=== PATIENT | female | born 1990 | race Caucasian/White ===

== ENCOUNTER 2018-12-23 07:08 | Inpatient (IN) | payer BC ==
[2018-12-23] MEDS ORDERED: Misoprostol 25 MCG (1/4 of 100 MCG) Tab ONE (07:17)
[2018-12-23] MEDS ORDERED: Ondansetron 4 MG/2 ML SDV IVPUSH PRN ×2 (07:18→09:50)
[2018-12-23] MEDS ORDERED: Sodium Chloride 0.9% 10 ML Syringe FLUSH PRN (07:18)
[2018-12-23] MEDS ORDERED: Nalbuphine 10 MG/1 ML Vial IVPUSH PRN (07:18)
--- NOTE | 2018-12-23 07:21 | PCM.LDHP ---
L&D History of Present Illness - General Date of Service: 12/23/18 Admit Problem/Dx: Patient Status Order with Admit Dx/Problem 12/23/18 07:18 Patient Status [ADT] Routine Admission Diagnosis/Problem Admission Diagnosis/Problem High risk Source of Information: Patient History Limitations: Reports: No Limitations - History of Present Illness Introduction:: Patient is a 28-year-old at 37-0/7 weeks gestation who presents for induction of labor for concerns of growth restriction and current . She is feeling well today. Good movement. 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 Para: 0 LMP (Approximate): - Past Surgical History HEENT Surgical History: Reports: Adenoidectomy, Tonsillectomy Social & Family History - Tobacco Use Smoking Status *Q: Never Smoker - Alcohol Use Alcohol Use History: No - Recreational Drug Use Recreational Drug Use: No H&P Review of Systems - Review of Systems: Review Of Systems: See Below General: Reports: No Symptoms Pulmonary: Reports: No Symptoms Cardiovascular: Reports: No Symptoms Gastrointestinal: Reports: No Symptoms Genitourinary: Reports: No Symptoms Musculoskeletal: Reports: No Symptoms Neurological: Reports: No Symptoms L&D Exam - Exam Exam: See Below - OB Specific Contraction Intensity: Irritability Movement: Active Heart Tones: Present Heart Tones per Min: 125 Heart Rate (FHR) Variability: Moderate (6-25 bmp) Presentation: Vertex - Rizo Score Rizo Score Cervix Position: Posterior Rizo Score Consistency: Medium Rizo Score Effacement: 0-30% Rizo Score Dilation: Closed Rizo Score Infant's Station: -2 Rizo Score Total: 2 - Exam General: Alert, Oriented, Cooperative Lungs: Clear to Auscultation, Normal Respiratory Effort Cardiovascular: Regular Rate, Regular Rhythm GI/Abdominal Exam: Soft, Non-Tender Genitourinary: Normal external exam Extremities: Normal Inspection Skin: Warm, Dry, Intact - Patient Data Result Diagrams: 12/23/18 07:32 - Problem List (1) 37 weeks gestation of SNOMED Code(s): 02930908 ICD Code: Z3A.37 - 37 WEEKS GESTATION OF Status: Acute Current Visit: Yes (2) IUGR (intrauterine growth restriction) SNOMED Code(s): 06880411 ICD Code: [id number] - Status: Acute Current Visit: Yes (3) Rh negative state in antepartum period SNOMED Code(s): 120910170 ICD Code: O26.899 - OTH RELATED CONDITIONS, UNSPECIFIED TRIMESTER; Z67.91 - UNSPECIFIED BLOOD TYPE, RH NEGATIVE Status: Acute Current Visit: Yes (4) GBS (group B Streptococcus carrier), +RV culture, currently SNOMED Code(s): 2953407052709, 809103308, 5089415446887 ICD Code: O99.820 - STREPTOCOCCUS B CARRIER STATE COMPLICATING Status: Acute Current Visit: Yes Problem List Initiated/Reviewed/Updated: Yes Orders Last 24hrs: Active Orders 24 hr Category Date Time Status Patient Status [ADT] Routine ADT 12/23/18 07:18 Ordered Activity as Tolerated [RC] PFP Care 12/23/18 07:18 Ordered Communication Order [RC] ASDIRECTED Care 12/23/18 07:18 Ordered Communication Order [RC] ASDIRECTED Care 12/23/18 07:18 Ordered Communication Order [RC] ASDIRECTED Care 12/23/18 07:18 Ordered Monitoring [RC] INTERMITTENT Care 12/23/18 07:18 Ordered Non Stress Test [RC] PER UNIT ROUTINE Care 12/23/18 07:18 Ordered Notify Provider [RC] ASDIRECTED Care 12/23/18 07:18 Ordered Notify Provider [RC] PRN Care 12/23/18 07:18 Ordered Peripheral IV Care [RC] . DIRECTED Care 12/23/18 07:19 Ordered Vaginal Exam [RC] ASDIRECTED Care 12/23/18 07:18 Ordered Vital Signs [RC] ASDIRECTED Care 12/23/18 07:18 Ordered Regular Diet [DIET] Diet 12/23/18 Breakfast Ordered CBC W/O DIFF,HEMOGRAM [HEME] Routine Lab 12/23/18 07:18 Ordered RAPID PLASMA REAGIN,RPR [CHEM] Routine Lab 12/23/18 07:18 Ordered TYPE AND SCREEN [BBK] Routine Lab 12/23/18 07:18 Ordered Lactated Ringers [Ringers, Lactated] 1,000 ml Med 12/23/18 07:30 Ordered IV ASDIRECTED Nalbuphine [Nubain] Med 12/23/18 07:18 Ordered 10 mg IVPUSH Q2H PRN Ondansetron [Zofran] Med 12/23/18 07:18 Ordered 4 mg IVPUSH Q4H PRN Oxytocin/Lactated Ringers [Pitocin in LR 10 Units/1,000 Med 12/23/18 07:30 Ordered ML] 10 unit in 1,000 ml IV .CONTINUOUS Sodium Chloride 0.9% [Saline Flush] Med 12/23/18 07:18 Ordered 10 ml FLUSH ASDIRECTED PRN miSOPROStol [Cytotec] Med 12/23/18 07:18 Ordered 25 mcg VAG Q4H PRN Electronic Heart Tones Internal [WOMSER] Per Unit Oth 12/23/18 07:18 Ordered Routine Peripheral IV Insertion Adult [OM.PC] Routine Oth 12/23/18 07:18 Ordered Resuscitation Status Routine Resus Stat 12/23/18 07:18 Ordered Assessment/Plan Comment:: Patient is a 28-year-old at 37-0/7 weeks gestation who presents for induction of labor for growth restriction * Labs ordered * Will start induction with Cytotec and eventually [place] bulb and then on to Pitocin and AROM as needed * GBS positive, will start antibiotic skin in more active phase of labor * Pain management per patient preference * Anticipate * Assess baby blood type following delivery to see if additional Rhogam required
[2018-12-23] MEDS ORDERED: fentaNYL 100 MCG/2 ML SDV EPIDUR PRN (09:50)
[2018-12-23] MEDS ORDERED: ePHEDrine 50 MG/ML SDV IVPUSH PRN (09:50)
--- NOTE | 2018-12-23 09:52 | PCM.PREANE ---
Preanesthetic Assessment - Anesthesia/Transfusion/Family Hx Anesthesia History: Prior Anesthesia Without Reaction Family History of Anesthesia Reaction: No Transfusion History: No Prior Transfusion(s) Intubation History: Unknown - Review of Systems General: No Symptoms Pulmonary: No Symptoms Cardiovascular: No Symptoms Gastrointestinal: No Symptoms (GERD-), Constipation () Neurological: No Symptoms Other: Reports: None, Sinus Problem (seasonal allergies), Depression, Anxiety - Physical Assessment NPO Status Date: 12/23/18 NPO Status Time: 06:30 Vital Signs: Last Vital Signs Temp 36.6 C 12/23/18 07:18 Pulse 57 L 12/23/18 07:18 Resp 16 12/23/18 07:18 BP 112/67 12/23/18 07:18 Pulse Ox 97 12/23/18 07:18 Height: 1.65 m Weight: 67.585 kg ASA Class: 2 Mental Status: Alert & Oriented x3 Airway Class: Mallampati = 2 Dentition: Reports: Normal Dentition, Caries Thyro-Mental Finger Breadths: 3 Mouth Opening Finger Breadths: 3 ROM/Head Extension: Full Lungs: Clear to Auscultation, Normal Respiratory Effort Cardiovascular: Regular Rate, Regular Rhythm, No Murmurs - Lab Values: Laboratory Last Values WBC 7.36 K/mm3 (3.98-10.04) 12/23/18 07:32 RBC 4.29 M/mm3 (3.98-5.22) 12/23/18 07:32 Hgb 13.0 gm/L (11.2-15.7) 12/23/18 07:32 Hct 37.7 % (34.1-44.9) 12/23/18 07:32 MCV 87.9 fl (79.4-94.8) 12/23/18 07:32 MCH 30.3 pg (25.6-32.2) 12/23/18 07:32 MCHC 34.5 g/dl (32.2-35.5) 12/23/18 07:32 RDW Std Deviation 39.2 fL (36.4-46.3) 12/23/18 07:32 Plt Count 176 K/mm3 (182-369) L 12/23/18 07:32 MPV 10.5 fl (9.4-12.3) 12/23/18 07:32 Blood Type O NEGATIVE 12/23/18 07:32 Gel Antibody Screen Positive 12/23/18 07:32 All labs reviewed and noted and within acceptable ranges to proceed with epidural if desired. - Allergies Allergies/Adverse Reactions: Allergies Allergy/AdvReac Type Severity Reaction Status Date / Time shellfish derived Allergy Hives Verified 12/23/18 08:47 - Anesthesia Plan Pre-Op Medication Ordered: None - Acknowledgements Anesthesia Type Planned: Epidural Pt an Appropriate Candidate for the Planned Anesthesia: Yes Alternatives and Risks of Anesthesia Discussed w Pt/Guardian: Yes Pt/Guardian Understands and Agrees with Anesthesia Plan: Yes PreAnesthesia Questionnaire - Past Health History Medical/Surgical History: Denies Medical/Surgical History HEENT History: Reports: Other (See Below) Other HEENT History: Seasonal allergies 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: Psychiatric History: Reports: Anxiety - SUBSTANCE USE Smoking Status *Q: Never Smoker Second Hand Smoke Exposure: No Recreational Drug Use History: No - HOME MEDS Home Medications: Home Meds Famotidine [Pepcid] 20 mg PO BEDTIME 12/23/18 [History] PNV95/Ferrous Fumarate/FA [ Tablet] 1 tab PO DAILY 12/23/18 [History] Sertraline HCl 50 mg PO DAILY 12/23/18 [History] - CURRENT (IN HOUSE) MEDS Current Meds: Current Medications Lactated Ringer's (Ringers, Lactated) 1,000 mls @ 40 mls/hr IV ASDIRECTED RAQUEL Oxytocin/Lactated Ringer's (Pitocin In Lr 10 Units/1,000 Ml) 10 unit in 1,000 mls @ 500 mls/hr IV .CONTINUOUS RAQUEL Misoprostol (Cytotec) 25 mcg VAG Q4H PRN PRN Reason: cervical ripening Nalbuphine HCl (Nubain) 10 mg IVPUSH Q2H PRN PRN Reason: Pain Ondansetron HCl (Zofran) 4 mg IVPUSH Q4H PRN PRN Reason: Nausea/Vomiting Sodium Chloride (Saline Flush) 10 ml FLUSH ASDIRECTED PRN PRN Reason: Keep Vein Open Discontinued Medications Misoprostol (Cytotec) Confirm Administered Dose 25 mcg .ROUTE .STK-MED ONE Stop: 12/23/18 07:18 Last Admin: 12/23/18 07:15 Dose: 25 mcg
[2018-12-23] MEDS ORDERED: Bupivacaine/fentaNYL/NS 100 ML Bag EPIDUR SCH (10:00)
[2018-12-23] MEDS: Misoprostol 25 MCG (1/4 of 100 MCG) Tab VAG PRN ×2 (11:44→15:59)
--- NOTE | 2018-12-23 17:04 | PCM.PNLD ---
Labor Progress Note - VS & Meds Vital Signs: Last Vital Signs Temp 36.6 C 12/23/18 07:18 Pulse 57 L 12/23/18 07:18 Resp 16 12/23/18 07:18 BP 112/67 12/23/18 07:18 Pulse Ox 97 12/23/18 07:18 Active Medications: Current Medications Ephedrine Sulfate (Ephedrine Sulfate) 5 mg IVPUSH ASDIRECTED PRN PRN Reason: Hypotension Fentanyl (Sublimaze) 100 mcg EPIDUR Q3H PRN PRN Reason: Pain Fentanyl/Bupivacaine HCl (Fentanyl/Bupivacaine/Ns 2 Mcg-0.125% 100 Ml) 100 ml EPIDUR ASDIRECTED RAQUEL Lactated Ringer's (Ringers, Lactated) 1,000 mls @ 40 mls/hr IV ASDIRECTED RAQUEL Oxytocin/Lactated Ringer's (Pitocin In Lr 10 Units/1,000 Ml) 10 unit in 1,000 mls @ 500 mls/hr IV .CONTINUOUS RAQUEL Penicillin G Potassium 5 (millunits/ Sodium Chloride) 100 mls @ 55 mls/hr IV ONETIME RAQUEL Penicillin G Potassium 2.5 (millunits/ Sodium Chloride) 100 mls @ 55 mls/hr IV Q4H RAQUEL Misoprostol (Cytotec) 25 mcg VAG Q4H PRN PRN Reason: cervical ripening Last Admin: 12/23/18 15:59 Dose: 25 mcg Nalbuphine HCl (Nubain) 10 mg IVPUSH Q2H PRN PRN Reason: Pain Ondansetron HCl (Zofran) 4 mg IVPUSH Q4H PRN PRN Reason: Nausea/Vomiting Ondansetron HCl (Zofran) 4 mg IVPUSH ONETIME PRN PRN Reason: Nausea/Vomiting Sertraline HCl (Zoloft) 50 mg PO DAILY RAQUEL Sodium Chloride (Saline Flush) 10 ml FLUSH ASDIRECTED PRN PRN Reason: Keep Vein Open Discontinued Medications Misoprostol (Cytotec) Confirm Administered Dose 25 mcg .ROUTE .STK-MED ONE Stop: 12/23/18 07:18 Last Admin: 12/23/18 07:15 Dose: 25 mcg - Uterine Contractions Uterine Monitoring Mode: External [place] Contraction Intensity: Irritability - Monitoring Monitor Mode: External Ultrasound Heart Rate (FHR) Baseline: 120 Heart Rate (FHR) Variability: Moderate (6-25 bmp) Accelerations: Present, 15x15 Decelerations: None Strip Review: Category I - Vaginal Exam Dilation (cm): 0.5 - Labor Progress (Free Text) Labor Progress: Doing well. Had 3rd dose of Cytotec placed on 1530. [place] bulb placed to continue IOL. Will reassess for 4th cytotec vs pitocin at 1930. Will start PCN when more active
--- NOTE | 2018-12-23 20:12 | PCM.PNLD ---
Labor Progress Note - VS & Meds Vital Signs: Last Vital Signs Temp 36.6 C 12/23/18 07:18 Pulse 57 L 12/23/18 07:18 Resp 16 12/23/18 07:18 BP 112/67 12/23/18 07:18 Pulse Ox 97 12/23/18 07:18 Active Medications: Current Medications Ephedrine Sulfate (Ephedrine Sulfate) 5 mg IVPUSH ASDIRECTED PRN PRN Reason: Hypotension Fentanyl (Sublimaze) 100 mcg EPIDUR Q3H PRN PRN Reason: Pain Fentanyl/Bupivacaine HCl (Fentanyl/Bupivacaine/Ns 2 Mcg-0.125% 100 Ml) 100 ml EPIDUR ASDIRECTED RAQUEL Lactated Ringer's (Ringers, Lactated) 1,000 mls @ 40 mls/hr IV ASDIRECTED RAQUEL Oxytocin/Lactated Ringer's (Pitocin In Lr 10 Units/1,000 Ml) 10 unit in 1,000 mls @ 500 mls/hr IV .CONTINUOUS RAQUEL Penicillin G Potassium 5 (millunits/ Sodium Chloride) 100 mls @ 55 mls/hr IV ONETIME RAQUEL Penicillin G Potassium 2.5 (millunits/ Sodium Chloride) 100 mls @ 55 mls/hr IV Q4H RAQUEL Misoprostol (Cytotec) 25 mcg VAG Q4H PRN PRN Reason: cervical ripening Last Admin: 12/23/18 15:59 Dose: 25 mcg Nalbuphine HCl (Nubain) 10 mg IVPUSH Q2H PRN PRN Reason: Pain Ondansetron HCl (Zofran) 4 mg IVPUSH Q4H PRN PRN Reason: Nausea/Vomiting Ondansetron HCl (Zofran) 4 mg IVPUSH ONETIME PRN PRN Reason: Nausea/Vomiting Sertraline HCl (Zoloft) 50 mg PO DAILY RAQUEL Sodium Chloride (Saline Flush) 10 ml FLUSH ASDIRECTED PRN PRN Reason: Keep Vein Open Discontinued Medications Misoprostol (Cytotec) Confirm Administered Dose 25 mcg .ROUTE .STK-MED ONE Stop: 12/23/18 07:18 Last Admin: 12/23/18 07:15 Dose: 25 mcg - Uterine Contractions Uterine Monitoring Mode: External [employer] Contraction Intensity: Moderate - Monitoring Monitor Mode: External Ultrasound Heart Rate (FHR) Baseline: 150 Heart Rate (FHR) Variability: Moderate (6-25 bmp) Accelerations: Present, 15x15 Decelerations: None Strip Review: Category I - Vaginal Exam Dilation (cm): 2-3 Effacement (Percent): 50 Station: -2 Cervical Position: Midposition - Labor Progress (Free Text) Labor Progress: [place] bulb deflated and removed. Patient fairly uncomfortable. Will hold on further medications for IOL for now. If contraction pattern starts to space out will add in pitocin. Patient agrees. PCN to be started
[2018-12-23] MEDS: Lactated Ringers 1,000 ML IV SCH (20:33)
[2018-12-23] MEDS ORDERED: Penicillin G Potassium 5 MILLUNITS in Sodium Chloride 0.9% 100 ML IV ONE (21:00)
[2018-12-23] MEDS ORDERED: Penicillin G Potassium 5 MILLUNITS in Sodium Chloride 0.9% 100 ML IV SCH (22:00)
[2018-12-23] MEDS: Oxytocin/Lactated Ringers 10 UNIT/1,000 ML BAG IV SCH (22:31)
[2018-12-23] MEDS ORDERED: Oxytocin/Lactated Ringers 10 UNIT/1,000 ML BAG IV SCH (22:45)
[2018-12-24] MEDS: Lactated Ringers 1,000 ML IV SCH ×3 (00:49→08:20)
[2018-12-24] MEDS: Penicillin G Potassium 2.5 MILLUNITS in Sodium Chloride 0.9% 100 ML IV SCH ×2 (01:17→04:31)
--- NOTE | 2018-12-24 03:17 | PCM.PNLD ---
Labor Progress Note - VS & Meds Vital Signs: Last Vital Signs Temp 36.6 C 12/23/18 07:18 Pulse 57 L 12/23/18 07:18 Resp 16 12/23/18 07:18 BP 112/67 12/23/18 07:18 Pulse Ox 97 12/23/18 07:18 Active Medications: Current Medications Ephedrine Sulfate (Ephedrine Sulfate) 5 mg IVPUSH ASDIRECTED PRN PRN Reason: Hypotension Fentanyl (Sublimaze) 100 mcg EPIDUR Q3H PRN PRN Reason: Pain Last Admin: 12/24/18 01:22 Dose: 100 mcg Fentanyl/Bupivacaine HCl (Fentanyl/Bupivacaine/Ns 2 Mcg-0.125% 100 Ml) 100 ml EPIDUR ASDIRECTED RAQUEL Last Admin: 12/24/18 01:21 Dose: 100 ml Lactated Ringer's (Ringers, Lactated) 1,000 mls @ 40 mls/hr IV ASDIRECTED RAQUEL Last Admin: 12/24/18 00:49 Dose: 40 mls/hr Oxytocin/Lactated Ringer's (Pitocin In Lr 10 Units/1,000 Ml) 10 unit in 1,000 mls @ 500 mls/hr IV .CONTINUOUS RAQUEL Penicillin G Potassium 2.5 (millunits/ Sodium Chloride) 100 mls @ 55 mls/hr IV Q4H RAQUEL Last Admin: 12/24/18 01:17 Dose: 55 mls/hr Oxytocin/Lactated Ringer's (Pitocin In Lr 10 Units/1,000 Ml) 10 unit in 1,000 mls @ 12 mls/hr IV TITRATE RAQUEL; Protocol Last Titration: 12/24/18 03:04 Dose: 10 munits/min, 60 mls/hr Misoprostol (Cytotec) 25 mcg VAG Q4H PRN PRN Reason: cervical ripening Last Admin: 12/23/18 15:59 Dose: 25 mcg Nalbuphine HCl (Nubain) 10 mg IVPUSH Q2H PRN PRN Reason: Pain Ondansetron HCl (Zofran) 4 mg IVPUSH Q4H PRN PRN Reason: Nausea/Vomiting Ondansetron HCl (Zofran) 4 mg IVPUSH ONETIME PRN PRN Reason: Nausea/Vomiting Sertraline HCl (Zoloft) 50 mg PO BEDTIME RAQUEL Sodium Chloride (Saline Flush) 10 ml FLUSH ASDIRECTED PRN PRN Reason: Keep Vein Open Discontinued Medications Penicillin G Potassium 5 (millunits/ Sodium Chloride) 100 mls @ 55 mls/hr IV ONETIME ONE Stop: 12/23/18 22:49 Last Admin: 12/23/18 20:30 Dose: 55 mls/hr Misoprostol (Cytotec) Confirm Administered Dose 25 mcg .ROUTE .STK-MED ONE Stop: 12/23/18 07:18 Last Admin: 12/23/18 07:15 Dose: 25 mcg - Uterine Contractions Uterine Monitoring Mode: External [place] Contraction Intensity: Moderate - Monitoring Monitor Mode: External Ultrasound Heart Rate (FHR) Baseline: 140 Heart Rate (FHR) Variability: Moderate (6-25 bmp) Accelerations: Present, 15x15 Decelerations: None Strip Review: Category I - Vaginal Exam Dilation (cm): 4 Effacement (Percent): 50 Station: -2 Cervical Position: Midposition - Labor Progress (Free Text) Labor Progress: Patient doing well. Pitocin is at 10. Comfortable with epidural in place. AROM performed with release of blood tinged fluid. Continue present management
--- NOTE | 2018-12-24 08:03 | PCM.DEL ---
L & D Note - General Info Date of Service: 12/24/18 - Delivery Note Labor: Induced by ARM, Induced by Oxytocin Cervical Ripening Method: Balloon Device, Misoprostil Delivery Outcome: Livebirth Infant Delivery Method: Spontaneous Vaginal Delivery-Single Delivery Mode: Vacuum Extraction Presentation: Right Occiput Anterior (ASTRID) Nuchal Cord: None Anesthesia Type: Epidural Amniotic Fluid Description: Clear Episiotomy Type: None Laceration: 1st Degree, Labial Suture type: Vicryl Suture size: 3-0 Placenta: Intact, Spontaneous Cord: 3 Vessels Resuscitation Needed: Yes [place]: Bulb Syringe, Stimulated, Warmed, [place] Used, Warmer Used Score 1 min: 5 Score 5 min: 9 Delivery Comments (Free Text/Narrative):: Patient found to be complete and began pushing. With pushing effort head crowing, but with prolonged deceleration into the 60's. Consent obtained and vacuum placed. Pressure increased to 550 mm Hg. With one pull lasting less than 45 seconds baby girl delivered from ASTRID presentation. Vacuum removed. With gentle downward traction shoulders and body delivered. placed on maternal abdomen. Cord clamped and cut. Baby taken to warmer for assessment. Cord segment obtained for cord gas. Cord blood then collected. Placenta allowed time to separate and expelled intact. Initial EBL of only 200 cc, but about 20 minutes after delivery had increased bleeding and poor tone. Given 600 mcg of buccal cytotec with good response Vacuum Extractor Progress Note - Alternative Labor Strategies Considered Alternative Labor Strategies Considered:: Reports: Yes Strategies Considered:: Reports: Empty Bladder Indications Considered:: Reports: Yes Indications:: Reports: Suspicion of Immediate or Potential Compromise Time Out:: Reports: Yes - Patient Prepared Patient Prepared:: Reports: Yes Informed Consent:: Reports: Yes, Verbal Risks: Reports: Yes Risks Include:: Reports: Laceration, Maternal Injury Anesthesia/Analgesia Adequate:: Reports: Yes - Probability of Success High Probability of Success:: Reports: Yes Weight Estimated:: Reports: SGA Patient Diabetic:: Reports: No Pelvis Adequate:: Reports: Yes Asynclitic:: Reports: No Station:: Outlet - Application Time Maximum Application Time & Number of Pop-Offs Predetermined:: Reports: Yes Maximum Pressure Maintained in [place] (cm Hg):: 550 Total Application Time (min): *max=20min: 1 Number of Times Cup Disengaged:: 0 Type of Vacuum Used:: Reports: Cup: Mushroom type Vacuum Extraction: Successful - Exit Strategy Exit strategy available:: Reports: Yes and resuscitation teams readily available:: Reports: Yes - General Info Date of Service: 12/24/18 - Patient Data Vitals - Most Recent: Last Vital Signs Temp 36.6 C 12/23/18 07:18 Pulse 57 L 12/23/18 07:18 Resp 16 12/23/18 07:18 BP 112/67 12/23/18 07:18 Pulse Ox 97 12/23/18 07:18 Weight - Most Recent: 67.585 kg Lab Results Last 24 Hours: Laboratory Results - last 24 hr 12/23/18 12/23/18 Range/Units 07:32 07:32 RPR Non-reactive (NONREACTIVE) Blood Type O NEGATIVE Gel Antibody Screen Positive Med Orders - Current: Current Medications Ephedrine Sulfate (Ephedrine Sulfate) 5 mg IVPUSH ASDIRECTED PRN PRN Reason: Hypotension Fentanyl (Sublimaze) 100 mcg EPIDUR Q3H PRN PRN Reason: Pain Last Admin: 12/24/18 01:22 Dose: 100 mcg Fentanyl/Bupivacaine HCl (Fentanyl/Bupivacaine/Ns 2 Mcg-0.125% 100 Ml) 100 ml EPIDUR ASDIRECTED RAQUEL Last Admin: 12/24/18 01:21 Dose: 100 ml Lactated Ringer's (Ringers, Lactated) 1,000 mls @ 40 mls/hr IV ASDIRECTED RAQUEL Last Admin: 12/24/18 06:05 Dose: 40 mls/hr Oxytocin/Lactated Ringer's (Pitocin In Lr 10 Units/1,000 Ml) 10 unit in 1,000 mls @ 500 mls/hr IV .CONTINUOUS RAQUEL Penicillin G Potassium 2.5 (millunits/ Sodium Chloride) 100 mls @ 55 mls/hr IV Q4H RAQUEL Last Admin: 12/24/18 04:31 Dose: 55 mls/hr Oxytocin/Lactated Ringer's (Pitocin In Lr 10 Units/1,000 Ml) 10 unit in 1,000 mls @ 12 mls/hr IV TITRATE RAQUEL; Protocol Last Titration: 12/24/18 06:09 Dose: 10 munits/min, 60 mls/hr Misoprostol (Cytotec) 25 mcg VAG Q4H PRN PRN Reason: cervical ripening Last Admin: 12/23/18 15:59 Dose: 25 mcg Nalbuphine HCl (Nubain) 10 mg IVPUSH Q2H PRN PRN Reason: Pain Ondansetron HCl (Zofran) 4 mg IVPUSH Q4H PRN PRN Reason: Nausea/Vomiting Ondansetron HCl (Zofran) 4 mg IVPUSH ONETIME PRN PRN Reason: Nausea/Vomiting Sertraline HCl (Zoloft) 50 mg PO BEDTIME RAQUEL Sodium Chloride (Saline Flush) 10 ml FLUSH ASDIRECTED PRN PRN Reason: Keep Vein Open Discontinued Medications Penicillin G Potassium 5 (millunits/ Sodium Chloride) 100 mls @ 55 mls/hr IV ONETIME ONE Stop: 12/23/18 22:49 Last Admin: 12/23/18 20:30 Dose: 55 mls/hr Misoprostol (Cytotec) Confirm Administered Dose 25 mcg .ROUTE .STK-MED ONE Stop: 12/23/18 07:18 Last Admin: 12/23/18 07:15 Dose: 25 mcg - Problem List & Annotations (1) 37 weeks gestation of SNOMED Code(s): 46729261 Code(s): Z3A.37 - 37 WEEKS GESTATION OF Status: Acute Current Visit: Yes (2) IUGR (intrauterine growth restriction) SNOMED Code(s): 52992609 Code(s): BPJ7268 - Status: Acute Current Visit: Yes (3) Rh negative state in antepartum period SNOMED Code(s): 056489345 Code(s): O26.899 - OTH RELATED CONDITIONS, UNSPECIFIED TRIMESTER; Z67.91 - UNSPECIFIED BLOOD TYPE, RH NEGATIVE Status: Acute Current Visit: Yes (4) GBS (group B Streptococcus carrier), +RV culture, currently SNOMED Code(s): 7439672185528, 220885533, 6991166416054 Code(s): O99.820 - STREPTOCOCCUS B CARRIER STATE COMPLICATING Status: Acute Current Visit: Yes (5) Vacuum-assisted vaginal delivery SNOMED Code(s): 94239725016534460 Code(s): Z37.9 - OUTCOME OF DELIVERY, UNSPECIFIED Status: Acute Current Visit: Yes - Problem List Review Problem List Initiated/Reviewed/Updated: Yes - My Orders Last 24 Hours: My Active Orders 12/23/18 07:18 Patient Status [ADT] Routine Activity as Tolerated [RC] PFP Communication Order [RC] ASDIRECTED Communication Order [RC] ASDIRECTED Communication Order [RC] ASDIRECTED Monitoring [RC] INTERMITTENT Non Stress Test [RC] PER UNIT ROUTINE Notify Provider [RC] ASDIRECTED Notify Provider [RC] PRN Vaginal Exam [RC] ASDIRECTED Vital Signs [RC] ASDIRECTED Nalbuphine [Nubain] 10 mg IVPUSH Q2H PRN Ondansetron [Zofran] 4 mg IVPUSH Q4H PRN Sodium Chloride 0.9% [Saline Flush] 10 ml FLUSH ASDIRECTED PRN miSOPROStol [Cytotec] 25 mcg VAG Q4H PRN Electronic Heart Tones Internal [WOMSER] Per Unit Routine Peripheral IV Insertion Adult [OM.PC] Routine Resuscitation Status Routine 12/23/18 07:19 Peripheral IV Care [RC] . DIRECTED 12/23/18 07:30 Lactated Ringers [Ringers, Lactated] 1,000 ml IV ASDIRECTED Oxytocin/Lactated Ringers [Pitocin in LR 10 Units/1,000 ML] 10 unit in 1,000 ml IV .CONTINUOUS 12/23/18 07:32 ANTIBODY IDENTIFICATION [BBK] Routine TYPE AND SCREEN [BBK] Routine 12/23/18 08:17 PATIENT RETYPE [BBK] Routine 12/23/18 22:45 Oxytocin/Lactated Ringers [Pitocin in LR 10 Units/1,000 ML] 10 unit in 1,000 ml IV TITRATE 12/24/18 00:30 Penicillin G Potassium [Pfizerpen] 2.5 millunits Sodium Chloride 0.9% [Normal Saline] 100 ml IV Q4H 12/24/18 21:00 Sertraline [Zoloft] 50 mg PO BEDTIME - Assessment Assessment:: 28 y/o G1 now P1001 PPD#0 from at 37 1/7 wks - Plan Plan:: VAVD * Routine cares * Encourage breast feeding * Discharge home in 2 days * Assess baby blood type following delivery to see if additional Rhogam required
--- NOTE | 2018-12-24 08:07 | PCM.DEL ---
L & D Note - General Info Date of Service: 12/24/18 - Delivery Note Presentation: Vertex - Patient Data Vitals - Most Recent: Last Vital Signs Temp 36.6 C 12/23/18 07:18 Pulse 57 L 12/23/18 07:18 Resp 16 12/23/18 07:18 BP 112/67 12/23/18 07:18 Pulse Ox 97 12/23/18 07:18 Weight - Most Recent: 67.585 kg Lab Results Last 24 Hours: Laboratory Results - last 24 hr 12/23/18 12/23/18 Range/Units 07:32 07:32 RPR Non-reactive (NONREACTIVE) Blood Type O NEGATIVE Gel Antibody Screen Positive Med Orders - Current: Current Medications Ephedrine Sulfate (Ephedrine Sulfate) 5 mg IVPUSH ASDIRECTED PRN PRN Reason: Hypotension Fentanyl (Sublimaze) 100 mcg EPIDUR Q3H PRN PRN Reason: Pain Last Admin: 12/24/18 01:22 Dose: 100 mcg Fentanyl/Bupivacaine HCl (Fentanyl/Bupivacaine/Ns 2 Mcg-0.125% 100 Ml) 100 ml EPIDUR ASDIRECTED RAQUEL Last Admin: 12/24/18 01:21 Dose: 100 ml Lactated Ringer's (Ringers, Lactated) 1,000 mls @ 40 mls/hr IV ASDIRECTED RAQUEL Last Admin: 12/24/18 06:05 Dose: 40 mls/hr Oxytocin/Lactated Ringer's (Pitocin In Lr 10 Units/1,000 Ml) 10 unit in 1,000 mls @ 500 mls/hr IV .CONTINUOUS RAQUEL Penicillin G Potassium 2.5 (millunits/ Sodium Chloride) 100 mls @ 55 mls/hr IV Q4H RAQUEL Last Admin: 12/24/18 04:31 Dose: 55 mls/hr Oxytocin/Lactated Ringer's (Pitocin In Lr 10 Units/1,000 Ml) 10 unit in 1,000 mls @ 12 mls/hr IV TITRATE RAQUEL; Protocol Last Titration: 12/24/18 06:09 Dose: 10 munits/min, 60 mls/hr Misoprostol (Cytotec) 25 mcg VAG Q4H PRN PRN Reason: cervical ripening Last Admin: 12/23/18 15:59 Dose: 25 mcg Nalbuphine HCl (Nubain) 10 mg IVPUSH Q2H PRN PRN Reason: Pain Ondansetron HCl (Zofran) 4 mg IVPUSH Q4H PRN PRN Reason: Nausea/Vomiting Ondansetron HCl (Zofran) 4 mg IVPUSH ONETIME PRN PRN Reason: Nausea/Vomiting Sertraline HCl (Zoloft) 50 mg PO BEDTIME RAQUEL Sodium Chloride (Saline Flush) 10 ml FLUSH ASDIRECTED PRN PRN Reason: Keep Vein Open Discontinued Medications Penicillin G Potassium 5 (millunits/ Sodium Chloride) 100 mls @ 55 mls/hr IV ONETIME ONE Stop: 12/23/18 22:49 Last Admin: 12/23/18 20:30 Dose: 55 mls/hr Misoprostol (Cytotec) Confirm Administered Dose 25 mcg .ROUTE .STK-MED ONE Stop: 12/23/18 07:18 Last Admin: 12/23/18 07:15 Dose: 25 mcg - Problem List & Annotations (1) 37 weeks gestation of SNOMED Code(s): 41427172 Code(s): Z3A.37 - 37 WEEKS GESTATION OF Status: Acute Current Visit: Yes (2) IUGR (intrauterine growth restriction) SNOMED Code(s): 25756765 Code(s): GRH7688 - Status: Acute Current Visit: Yes (3) Rh negative state in antepartum period SNOMED Code(s): 939765142 Code(s): O26.899 - OTH RELATED CONDITIONS, UNSPECIFIED TRIMESTER; Z67.91 - UNSPECIFIED BLOOD TYPE, RH NEGATIVE Status: Acute Current Visit: Yes (4) GBS (group B Streptococcus carrier), +RV culture, currently SNOMED Code(s): 2613594691074, 727822516, 2893343639666 Code(s): O99.820 - STREPTOCOCCUS B CARRIER STATE COMPLICATING Status: Acute Current Visit: Yes - My Orders Last 24 Hours: My Active Orders 12/23/18 07:18 Patient Status [ADT] Routine Activity as Tolerated [RC] PFP Communication Order [RC] ASDIRECTED Communication Order [RC] ASDIRECTED Communication Order [RC] ASDIRECTED Monitoring [RC] INTERMITTENT Non Stress Test [RC] PER UNIT ROUTINE Notify Provider [RC] ASDIRECTED Notify Provider [RC] PRN Vaginal Exam [RC] ASDIRECTED Vital Signs [RC] ASDIRECTED Nalbuphine [Nubain] 10 mg IVPUSH Q2H PRN Ondansetron [Zofran] 4 mg IVPUSH Q4H PRN Sodium Chloride 0.9% [Saline Flush] 10 ml FLUSH ASDIRECTED PRN miSOPROStol [Cytotec] 25 mcg VAG Q4H PRN Electronic Heart Tones Internal [WOMSER] Per Unit Routine Peripheral IV Insertion Adult [OM.PC] Routine Resuscitation Status Routine 12/23/18 07:19 Peripheral IV Care [RC] . DIRECTED 12/23/18 07:30 Lactated Ringers [Ringers, Lactated] 1,000 ml IV ASDIRECTED Oxytocin/Lactated Ringers [Pitocin in LR 10 Units/1,000 ML] 10 unit in 1,000 ml IV .CONTINUOUS 12/23/18 07:32 ANTIBODY IDENTIFICATION [BBK] Routine TYPE AND SCREEN [BBK] Routine 12/23/18 08:17 PATIENT RETYPE [BBK] Routine 12/23/18 22:45 Oxytocin/Lactated Ringers [Pitocin in LR 10 Units/1,000 ML] 10 unit in 1,000 ml IV TITRATE 12/24/18 00:30 Penicillin G Potassium [Pfizerpen] 2.5 millunits Sodium Chloride 0.9% [Normal Saline] 100 ml IV Q4H 12/24/18 08:04 Patient Status Manage Transfer [TRANSFER] Routine 12/24/18 21:00 Sertraline [Zoloft] 50 mg PO BEDTIME - Plan Plan:: Patient is a 28-year-old at 37-0/7 weeks gestation who presents for induction of labor for growth restriction * Labs ordered * Will start induction with Cytotec and eventually [place] bulb and then on to Pitocin and AROM as needed * GBS positive, will start antibiotic skin in more active phase of labor * Pain management per patient preference * Anticipate * Assess baby blood type following delivery to see if additional Rhogam required
[2018-12-24] MEDS ORDERED: Misoprostol 200 MCG Tab ONE (08:33)
[2018-12-24] MEDS ORDERED: Benzocaine/Menthol 20%-0.5% Spray 56 GM Canister TOP PRN (09:03)
[2018-12-24] MEDS ORDERED: Lanolin 100% Cream 7 GM Tube TOP PRN (09:03)
[2018-12-24] MEDS ORDERED: Witch Hazel Medicated Pads 40/Jar TOP PRN (09:03)
[2018-12-24] MEDS ORDERED: Misoprostol 200 MCG Tab PO STA (09:04)
[2018-12-24] MEDS: Oxytocin/Lactated Ringers 10 UNIT/1,000 ML BAG IV SCH (09:35)
[2018-12-24] MEDS: Ibuprofen 600 MG Tab PO PRN ×3 (09:50→22:29)
[2018-12-24] MEDS ORDERED: Lidocaine 1% 50 ML MDV ONE (11:28)
[2018-12-24] MEDS ORDERED: Acetaminophen/oxyCODONE 325-5 MG Tab PO PRN (12:56)
--- NOTE | 2018-12-24 13:07 | PCM.SN ---
- Free Text/Narrative Note: 1300 Patient's initial delivery with boggy uterine tone managed by 600 mcg. buccal cytotec. Patient with bilateral labial tears which were repaired. After delivery nursing with concerns that there may more bleeding from labial sites. Evaluation does show bilateral labial hematomas and disruption of suture lines. Small amount of plain lidocaine infiltrated into laceration sites. Labial laceration sites gently wiped clean of old clot. Bilateral sites closed with running, locked sutures of 2-0 vicryl. Slight ooze still noted from between suture lines following and so ice and gauze used to hold pressure. Ooze dramatically improved but still present. Given nurse concerns for overall EBL of > 1000 decision made to given tranexamic acid. Patient reassessed again at 1500 and sites appeared hemostatic. Only uterine bleeding noted. Continue to monitor closely. Leave apodaca in place for now Mamie Harrison MD
[2018-12-24] MEDS: Sertraline 50 MG Tab PO SCH (22:31)
[2018-12-25] MEDS: Ibuprofen 600 MG Tab PO PRN ×3 (04:56→18:50)
--- NOTE | 2018-12-25 09:19 | PCM.SN ---
- Free Text/Narrative Note: Post Progress Note PPD # 1 Subjective: Doing well overall. Ambulating without difficulty. She reports that she did have 1 episode of lightheadedness with standing earlier this morning that resolved with rest. She has had additional episodes where she has started without any lightheadedness or dizziness. Lochia minimal. [place] catheter in place and draining well. She reports that she has passing flatus without difficulty. She does feel like she is having some mild constipation and is taking Colace for this. Tolerating regular diet without nausea or vomiting. Pain controlled with oral medications. Breast-feeding and pumping breastmilk with minimal difficulty. Objective: Vitals: Vital Signs - 24 hr 12/24/18 12/24/18 12/24/18 13:00 14:33 20:10 Temperature 37.2 C 36.9 C Temperature [ 36.9 C Temporal] Pulse, 60 59 L Peripheral Pulse, 72 Peripheral [ Pulse Oximetry] Respiratory 20 14 18 Rate Blood Pressure 110/47 L 92/45 L Blood Pressure 126/88 [Upper Arm] O2 Sat by Pulse 98 99 Oximetry 12/25/18 05:05 Temperature Temperature [ Temporal] Pulse, 62 Peripheral Pulse, Peripheral [ Pulse Oximetry] Respiratory 14 Rate Blood Pressure 98/58 L Blood Pressure [Upper Arm] O2 Sat by Pulse 99 Oximetry Physical Exam General: Alert and oriented, no acute distress Lungs: Clear to auscultation bilaterally Heart: Regular rate and rhythm Abdomen: Soft, minimal appropriate tenderness, non-distended, fundus midline, nontender, and at the umbilicus Pelvis: Bilateral superior labial hematomas noted that were not firm or painful. Extended to approximately prison down the labia. Does not appear to be expanding at this time. Significant labial edema noted at this time. Labial lacerations with suture in place and appeared to be hemostatic. Small amount of blood clot at the vaginal introitus without any active bleeding. Extremities: No edema Laboratory Tests 12/23/18 12/23/18 12/23/18 Range/Units 07:32 07:32 07:32 WBC 7.36 (3.98-10.04) K/mm3 RBC 4.29 (3.98-5.22) M/mm3 Hgb 13.0 (11.2-15.7) gm/L Hct 37.7 (34.1-44.9) % MCV 87.9 (79.4-94.8) fl MCH 30.3 (25.6-32.2) pg MCHC 34.5 (32.2-35.5) g/dl RDW Std Deviation 39.2 (36.4-46.3) fL Plt Count 176 L (182-369) K/mm3 MPV 10.5 (9.4-12.3) fl Neut % (Auto) (34.0-71.1) % Lymph % (Auto) (19.3-51.7) % [place] % (Auto) (4.7-12.5) % Eos % (Auto) (0.7-5.8) Baso % (Auto) (0.1-1.2) % Neut # (Auto) (1.56-6.13) K/mm3 Lymph # (Auto) (1.18-3.74) K/mm3 [place] # (Auto) (0.24-0.36) K/mm3 Eos # (Auto) (0.04-0.36) K/mm3 Baso # (Auto) (0.01-0.08) K/mm3 Manual Slide Review RPR Non-reactive (NONREACTIVE) Blood Type O NEGATIVE Gel Antibody Screen Positive 12/25/18 Range/Units 05:03 WBC 8.48 (3.98-10.04) K/mm3 RBC 2.44 L (3.98-5.22) M/mm3 Hgb 7.2 L* D (11.2-15.7) gm/L Hct 22.1 L (34.1-44.9) % MCV 90.6 (79.4-94.8) fl MCH 29.5 (25.6-32.2) pg MCHC 32.6 (32.2-35.5) g/dl RDW Std Deviation 39.8 (36.4-46.3) fL Plt Count 109 L (182-369) K/mm3 MPV 9.8 (9.4-12.3) fl Neut % (Auto) 68.6 (34.0-71.1) % Lymph % (Auto) 22.4 (19.3-51.7) % [place] % (Auto) 7.5 (4.7-12.5) % Eos % (Auto) 1.2 (0.7-5.8) Baso % (Auto) 0.1 (0.1-1.2) % Neut # (Auto) 5.81 (1.56-6.13) K/mm3 Lymph # (Auto) 1.90 (1.18-3.74) K/mm3 [place] # (Auto) 0.64 H (0.24-0.36) K/mm3 Eos # (Auto) 0.10 (0.04-0.36) K/mm3 Baso # (Auto) 0.01 (0.01-0.08) K/mm3 Manual Slide Review Abnormal smear RPR (NONREACTIVE) Blood Type Gel Antibody Screen ASSESSMENT: 28-year-old female [id number] s/p vacuum-assisted vaginal delivery PPD #1, complicated by labial hematoma and hemorrhage with EBL of 1000 mL. Patient underwent induction of labor for intrauterine growth restriction. Patient with O- blood type and was GBS positive and received 3 doses of penicillin prior to delivery. PLAN: Doing well overall Patient with one episode of lightheadedness upon standing this morning. Her hemoglobin was down to 7.2. Discussed with patient that if the hemoglobin falls below 7I would recommend for blood transfusion or she becomes symptomatic with her blood loss at this point. Patient states understanding. We will continue to monitor patient closely for any signs or symptoms of acute blood loss anemia necessitating blood transfusion. Her vitals have been stable with normal heart rate and mild hypotension. Patient to start taking vitamin and iron supplementation once daily to help with hematopoiesis. We will plan to get repeat CBC in the morning of day #2 or if patient becomes symptomatic. Breast-feeding and pumping breastmilk with minimal difficulty. Assist as needed Lochia minimal. Continue to monitor for appropriate lochia. Hemostatic labial lacerations on exam. [place] catheter in place with significant labial edema noted. We will plan to remove the [place] catheter this afternoon. Continue routine care Infant with A- blood type and patient not a candidate for RhoGAM. Anticipate discharge home tomorrow Сергей Hobbs MD 9:13 AM 12/25/2018
[2018-12-25] MEDS: Docusate Sodium 100 MG Cap PO PRN (10:05)
[2018-12-25] MEDS: Prenatal Multivitamin with Calcium/Folic Acid/Iron Tab PO SCH (10:05)
--- NOTE | 2018-12-25 11:19 | PCM48HPAN ---
Post Anesthesia Note - EVALUATION WITHIN 48HRS OF ANESTHETIC Vital Signs in Normal Range: Yes Patient Participated in Evaluation: Yes Respiratory Function Stable: Yes Airway Patent: Yes Cardiovascular Function Stable: Yes Hydration Status Stable: Yes Pain Control Satisfactory: Yes Nausea and Vomiting Control Satisfactory: Yes Mental Status Recovered: Yes Vital Signs: Last Vital Signs Temp 36.9 C 12/24/18 20:10 Pulse 62 12/25/18 05:05 Resp 14 12/25/18 05:05 BP 98/58 L 12/25/18 05:05 Pulse Ox 99 12/25/18 05:05 - COMMENTS/OBSERVATIONS Free Text/Narrative:: no anesthesia complications noted
[2018-12-25] MEDS ORDERED: Ferrous Sulfate 325 MG Tab PO ONE (13:00)
[2018-12-25] MEDS: Acetaminophen 325 MG Tab PO PRN ×2 (15:26→23:06)
--- NOTE | 2018-12-25 15:35 | PCM.SN ---
- Free Text/Narrative Note: Subjective Patient continues to do well at this time. She has stood and ambulated multiple times without any lightheadedness or dizziness. She denies any shortness of breath or chest pain. She has been tolerating regular diet without any nausea or vomiting. She reports minimal lochia. Objective Vital Signs - 8 hr 12/25/18 08:16 Temperature 36.4 C Pulse, 75 Peripheral Respiratory 14 Rate Blood Pressure 104/45 L O2 Sat by Pulse 98 Oximetry Physical exam Gen.: No acute distress, alert and oriented Lungs: Unlabored breathing Heart: Regular rate Abdomen: Soft, nontender, nondistended, fundus at the umbilicus Pelvis: Continued edema noted of the labia majora and labia minora but appears to be less then what was this morning. [place] catheter in place and this was removed without difficulty. Evaluation of the bilateral labial lacerations did not show any active bleeding at this time. Extremities: No edema noted in bilateral lower extremities Assessment/plan 28-year-old female s/p vacuum-assisted vaginal delivery PPD #1, complicated by labial hematoma and hemorrhage with EBL of 1000 mL. patient had removal of her [place] catheter at this time. Monitor closely for any signs of urinary retention. Continue to monitor lochia and vaginal bleeding Monitor for any signs or symptoms of acute blood loss anemia that would necessitate a blood transfusion Assist with breast-feeding as needed Anticipate discharge home tomorrow Сергей Hobbs M.D. 3:36 PM 12/25/2018
[2018-12-25] MEDS: Sertraline 50 MG Tab PO SCH (21:33)
[2018-12-26] MEDS: Ibuprofen 600 MG Tab PO PRN ×2 (03:23→12:44)
[2018-12-26] MEDS: Docusate Sodium 100 MG Cap PO PRN (06:29)
[2018-12-26] MEDS ORDERED: Ferrous Sulfate 325 MG Tab PO SCH (07:00)
--- NOTE | 2018-12-26 08:40 | PCM.SN ---
- Free Text/Narrative Note: Post Progress Note PPD # 2 Subjective: Doing well overall. Ambulating without difficulty. Lochia minimal. Voiding without difficulty. She had a bowel movement this morning without difficulty. Tolerating regular diet without nausea or vomiting. Pain controlled with oral medications. Breast-feeding with minimal difficulty. Objective: Vitals: Vital Signs - 24 hr 12/25/18 12/25/18 12/26/18 15:18 21:22 05:53 Temperature 36.9 C 37.0 C 36.8 C Pulse, 70 71 65 Peripheral Respiratory 14 15 14 Rate Blood Pressure 103/53 L 106/61 107/81 O2 Sat by Pulse 100 99 98 Oximetry Physical Exam General: Alert and oriented, no acute distress Lungs: Clear to auscultation bilaterally Heart: Regular rate and rhythm Abdomen: Soft, minimal appropriate tenderness, non-distended, fundus midline, nontender, and 1 fingerbreadth below the umbilicus Pelvis: Bilateral superior labial hematomas noted that were not firm or painful and reduced in size since previous day. Labial edema noted to be significantly improved at this time. Labial lacerations with suture in place and appeared to be hemostatic. Small amount of blood clot at the vaginal introitus without any active bleeding. Extremities: No edema Laboratory Results - last 24 hr 12/26/18 Range/Units 05:13 WBC 9.58 (3.98-10.04) K/mm3 RBC 2.41 L (3.98-5.22) M/mm3 Hgb 7.1 L* (11.2-15.7) gm/L Hct 22.1 L (34.1-44.9) % MCV 91.7 (79.4-94.8) fl MCH 29.5 (25.6-32.2) pg MCHC 32.1 L (32.2-35.5) g/dl RDW Std Deviation 41.6 (36.4-46.3) fL Plt Count 125 L (182-369) K/mm3 MPV 10.3 (9.4-12.3) fl Neut % (Auto) 70.4 (34.0-71.1) % Lymph % (Auto) 20.1 (19.3-51.7) % [place] % (Auto) 7.2 (4.7-12.5) % Eos % (Auto) 1.9 (0.7-5.8) Baso % (Auto) 0.2 (0.1-1.2) % Neut # (Auto) 6.74 H (1.56-6.13) K/mm3 Lymph # (Auto) 1.93 (1.18-3.74) K/mm3 [place] # (Auto) 0.69 H (0.24-0.36) K/mm3 Eos # (Auto) 0.18 (0.04-0.36) K/mm3 Baso # (Auto) 0.02 (0.01-0.08) K/mm3 Manual Slide Review Abnormal smear ASSESSMENT: 28-year-old female [id number] s/p vacuum-assisted vaginal delivery PPD #2, complicated by labial hematoma and hemorrhage with EBL of 1000 mL. Patient underwent induction of labor for intrauterine growth restriction. Patient with O- blood type and was GBS positive and received 3 doses of penicillin prior to delivery. PLAN: Doing well overall Patient doing well since yesterday. Hemoglobin this morning was 7.1 with minimal change from previous evaluation. Patient denies any heavy lochia or bleeding vaginally. Reports that she did pass one quarter-sized clot. Patient to continue vitamin and iron supplementation once daily to help with hematopoiesis. Breast-feeding with minimal difficulty. Assist as needed Lochia minimal. Continue to monitor for appropriate lochia. Hemostatic labial lacerations on exam. Patient voiding without difficulty after removal of the catheter. Patient had a bowel movement this morning without difficulty. Continue routine care Infant with A- blood type and patient not a candidate for RhoGAM. Discharge home today Сергей Hobbs MD 8:39 AM 12/26/2018
[2018-12-26] MEDS: Acetaminophen 325 MG Tab PO PRN (08:49)
[2018-12-26] MEDS: Prenatal Multivitamin with Calcium/Folic Acid/Iron Tab PO SCH (08:49)
--- NOTE | 2018-12-26 09:02 | PCM.DCSUM1 ---
Discharge Summary - Hospital Course Free Text/Narrative:: - Delivery Note Labor: Induced by ARM, Induced by Oxytocin Cervical Ripening Method: Balloon Device, Misoprostil Delivery Outcome: Livebirth Delivery Method: Spontaneous Vaginal Delivery-Single Delivery Mode: Vacuum Extraction Presentation: Right Occiput Anterior (ASTRID) Nuchal Cord: None Anesthesia Type: Epidural Amniotic Fluid Description: Clear Episiotomy Type: None Laceration: 1st Degree, Labial Suture type: Vicryl Suture size: 3-0 Placenta: Intact, Spontaneous Cord: 3 Vessels Resuscitation Needed: Yes : Bulb Syringe, Stimulated, Warmed, [place] Used, Warmer Used Score 1 min: 5 Score 5 min: 9 Delivery Comments (Free Text/Narrative):: Patient found to be complete and began pushing. With pushing effort head crowing, but with prolonged deceleration into the 60's. Consent obtained and vacuum placed. Pressure increased to 550 mm Hg. With one pull lasting less than 45 seconds baby girl delivered from ASTRID presentation. Vacuum removed. With gentle downward traction shoulders and body delivered. Infant placed on maternal abdomen. Cord clamped and cut. Baby taken to warmer for assessment. Cord segment obtained for cord gas. Cord blood then collected. Placenta allowed time to separate and expelled intact. Initial EBL of only 200 cc, but about 20 minutes after delivery had increased bleeding and poor tone. Given 600 mcg of buccal cytotec with good response HPI Initial Comments: - Delivery Note Labor: Induced by ARM, Induced by Oxytocin Cervical Ripening Method: Balloon Device, Misoprostil Delivery Outcome: Livebirth Infant Delivery Method: Spontaneous Vaginal Delivery-Single Infant Delivery Mode: Vacuum Extraction Presentation: Right Occiput Anterior (ASTRID) Nuchal Cord: None Anesthesia Type: Epidural Amniotic Fluid Description: Clear Episiotomy Type: None Laceration: 1st Degree, Labial Suture type: Vicryl Suture size: 3-0 Placenta: Intact, Spontaneous Cord: 3 Vessels Resuscitation Needed: Yes [place]: Bulb Syringe, Stimulated, Warmed, [place] Used, Warmer Used Score 1 min: 5 Score 5 min: 9 Delivery Comments (Free Text/Narrative):: Patient found to be complete and began pushing. With pushing effort head crowing, but with prolonged deceleration into the 60's. Consent obtained and vacuum placed. Pressure increased to 550 mm Hg. With one pull lasting less than 45 seconds baby girl delivered from ASTRID presentation. Vacuum removed. With gentle downward traction shoulders and body delivered. placed on maternal abdomen. Cord clamped and cut. Baby taken to warmer for assessment. Cord segment obtained for cord gas. Cord blood then collected. Placenta allowed time to separate and expelled intact. Initial EBL of only 200 cc, but about 20 minutes after delivery had increased bleeding and poor tone. Given 600 mcg of buccal cytotec with good response Brief History: - Delivery Note. Labor: Induced by ARM, Induced by Oxytocin. Cervical Ripening Method: Balloon Device, Misoprostil. Delivery Outcome: Livebirth. Infant Delivery Method: Spontaneous Vaginal Delivery-Single. Delivery Mode: Vacuum Extraction. Presentation: Right Occiput Anterior (ASTRID). Nuchal Cord: None. Anesthesia Type: Epidural. Amniotic Fluid Description: Clear. Episiotomy Type: None. Laceration: 1st Degree, Labial. Suture type: Vicryl. Suture size: 3-0. Placenta: Intact, Spontaneous. Cord: 3 Vessels. Resuscitation Needed: Yes. : Bulb Syringe, Stimulated, Warmed, [place] Used, Warmer Used. Score 1 min: 5. Score 5 min: 9. Delivery Comments (Free Text/Narrative):: Patient found to be complete and began pushing. With pushing effort head crowing, but with prolonged deceleration into the 60's. Consent obtained and vacuum placed. Pressure increased to 550 mm Hg. With one pull lasting less than 45 seconds baby girl delivered from ASTRID presentation. Vacuum removed. With gentle downward traction shoulders and body delivered. placed on maternal abdomen. Cord clamped and cut. Baby taken to warmer for assessment. Cord segment obtained for cord gas. Cord blood then collected. Placenta allowed time to separate and expelled intact. Initial EBL of only 200 cc, but about 20 minutes after delivery had increased bleeding and poor tone. Given 600 mcg of buccal cytotec with good response Diagnosis: Stroke: No - Discharge Data Discharge Date: 12/26/18 Discharge Disposition: Home, Self-Care 01 Condition: Good - Referral to Home Health Primary Care Physician: Mamie Harrison MD - Patient Summary/Data Complications: hemorrhage with bleeding from labial lacerations Consults: None Hospital Course: Alondra Wood was admitted for induction of labor in the setting of intrauterine growth restriction. On admission her cervix was closed. She was started on Cytotec vaginally for induction of labor. She had a transverse cervical Trin[place] bulb placed for mechanical dilation of the cervix. She had the [place] bulb removed approximately 3 hours after initial placement. She was GBS positive and was started on penicillin for antibiotic prophylaxis. She received a total of 3 doses prior to delivery. She was given pitocin for augmentation. She was given an epidural for anesthesia. She had artificial rupture of membranes with blood-tinged fluid. She progressed to complete and began pushing. She had prolonged decelerations into the 60s and on 12/24/2018 she had a active assisted vaginal delivery of a live female infant at 07:34. Apgars of 5 and 9. Weight of 2220 g (4 pounds 14.3 ounces). She had bilateral labial lacerations that were repaired with 3-0 Vicryl. Her course was complicated by hemorrhage and was given 600 mcg of buccal Cytotec for uterine tone. She had additional bleeding from the labial laceration sites and these were repaired with running locked sutures of 2-0 Vicryl. Patient was also noted to have bilateral labial hematomas that were not expanding or painful. She was given tranexamic acid to help with clotting. She was given Percocet for pain control initially. She had a [place] catheter placed for drainage of urine given significant labial and pelvic edema. Her pain was well controlled in the morning of day #1 and she had minimal lochia. In the morning of day #1 she reported that she was having some lightheadedness with standing but it had resolved spontaneously and did not continue throughout the day. Her hemoglobin in the morning of day #1 was 7.2 and we continue to monitor for any signs or symptoms of acute blood loss anemia. She had her [place] catheter removed in the afternoon of day #1 and she was able to void without difficulty. She was ambulating, tolerating a regular diet and voiding normally in the morning of day #2. She denied any lightheadedness or dizziness with ambulation or standing in the morning of day #2. She was breast- feeding with minimal difficulty. She was afebrile and her hemoglobin was 7.1 on day #2. She desired to be discharged home on the morning of PPD # 2. Her blood type is O- and has A- blood type. RhoGAM not indicated. - Patient Instructions Diet: Regular Diet as Tolerated Activity: Apply Ice, As Tolerated Activity, Other: Nothing in the vagina for 6 weeks Driving: May Drive Today Showering/Bathing: May Shower Notify Provider of: Fever, Increased Pain, Swelling and Redness, Drainage, Nausea and/or Vomiting Other/Special Instructions: Please contact your physician's office if you have heavy vaginal bleeding enough to soak a pad in less than an hour. Monitor for any signs of an infection in the breasts with severe pain or redness of the breast. - Discharge Plan *PRESCRIPTION DRUG MONITORING PROGRAM REVIEWED*: Not Applicable *COPY OF PRESCRIPTION DRUG MONITORING REPORT IN PATIENT PETER: Not Applicable Home Medications: Home Meds Famotidine [Pepcid] 20 mg PO BEDTIME 12/23/18 [History] PNV95/Ferrous Fumarate/FA [ Tablet] 1 tab PO DAILY 12/23/18 [History] Sertraline HCl 50 mg PO DAILY 12/23/18 [History] Acetaminophen [Tylenol] 650 mg PO Q4H PRN tablet 12/26/18 [Rx] Benzocaine/Menthol [Dermoplast Pain Relief [place]] 1 spray TOP ASDIRECTED PRN canister 12/26/18 [Rx] Docusate Sodium [Colace] 100 mg PO BID PRN cap 12/26/18 [Rx] Ferrous Sulfate 325 mg PO WITHBREAKFAST tablet 12/26/18 [Rx] Ibuprofen [Motrin] 600 mg PO Q6H PRN tablet 12/26/18 [Rx] Lanolin [Lansinoh HPA] 1 applic TOP ASDIRECTED PRN tube 12/26/18 [Rx] Witch Erinn [Tucks] 1 pad TOP ASDIRECTED PRN pad 12/26/18 [Rx] Patient Handouts: Vaginal Delivery, Care After, Care of a Perineal Tear Referrals: Mamie Harrison MD [Primary Care Provider] - (Follow-up in 2 weeks or earlier as needed for routine visit.) - Discharge Summary/Plan Comment DC Time >30 min.: No - Patient Data Vitals - Most Recent: Last Vital Signs Temp 36.8 C 12/26/18 05:53 Pulse 65 12/26/18 05:53 Resp 14 12/26/18 05:53 BP 107/81 12/26/18 05:53 Pulse Ox 98 12/26/18 05:53 Weight - Most Recent: 67.585 kg I&O - Last 24 hours: Intake & Output 12/25/18 12/26/18 12/26/18 22:59 06:59 14:59 Intake Total 480 1800 Output Total 1025 Balance -545 1800 Lab Results - Last 24 hrs: Laboratory Results - last 24 hr 12/26/18 Range/Units 05:13 WBC 9.58 (3.98-10.04) K/mm3 RBC 2.41 L (3.98-5.22) M/mm3 Hgb 7.1 L* (11.2-15.7) gm/L Hct 22.1 L (34.1-44.9) % MCV 91.7 (79.4-94.8) fl MCH 29.5 (25.6-32.2) pg MCHC 32.1 L (32.2-35.5) g/dl RDW Std Deviation 41.6 (36.4-46.3) fL Plt Count 125 L (182-369) K/mm3 MPV 10.3 (9.4-12.3) fl Neut % (Auto) 70.4 (34.0-71.1) % Lymph % (Auto) 20.1 (19.3-51.7) % [place] % (Auto) 7.2 (4.7-12.5) % Eos % (Auto) 1.9 (0.7-5.8) Baso % (Auto) 0.2 (0.1-1.2) % Neut # (Auto) 6.74 H (1.56-6.13) K/mm3 Lymph # (Auto) 1.93 (1.18-3.74) K/mm3 [place] # (Auto) 0.69 H (0.24-0.36) K/mm3 Eos # (Auto) 0.18 (0.04-0.36) K/mm3 Baso # (Auto) 0.02 (0.01-0.08) K/mm3 Manual Slide Review Abnormal smear Med Orders - Current: Current Medications Acetaminophen (Tylenol) 650 mg PO Q4H PRN PRN Reason: mild pain or fever Last Admin: 12/26/18 08:49 Dose: 650 mg Benzocaine/Menthol (Dermoplast Pain Relief [place]) 0 gm TOP ASDIRECTED PRN PRN Reason: Perineal Comfort Measure Last Admin: 12/26/18 06:27 Dose: 1 canister Docusate Sodium (Colace) 100 mg PO BID PRN PRN Reason: Constipation Last Admin: 12/26/18 06:29 Dose: 100 mg Emollient Ointment (Lansinoh Hpa) 0 gm TOP ASDIRECTED PRN PRN Reason: Sore Nipples Ferrous Sulfate (Ferrous Sulfate) 325 mg PO WITHBREAKFAST FORMERLY [facility], [facility]1983 Last Admin: 12/26/18 06:28 Dose: 325 mg Ibuprofen (Motrin) 600 mg PO Q6H PRN PRN Reason: Mild pain or fever Last Admin: 12/26/18 03:23 Dose: 600 mg Oxycodone/Acetaminophen (Percocet 325-5 Mg) 2 tab PO Q4H PRN PRN Reason: Pain (moderate 4-6) Last Admin: 12/24/18 13:13 Dose: 2 tab Prenat Multivit/Cooler Tender/Iron/Folic Ac ( Plus Iron) 1 each PO DAILY FOR[facility], [facility]1983 Last Admin: 12/26/18 08:49 Dose: 1 each Sertraline HCl (Zoloft) 50 mg PO BEDTIME FOR[facility], [facility] Last Admin: 12/25/18 21:33 Dose: 50 mg Witch Erinn (Tucks) 1 pad TOP ASDIRECTED PRN PRN Reason: Perineal Comfort Measure Last Admin: 12/26/18 06:28 Dose: 1 carton Discontinued Medications Ephedrine Sulfate (Ephedrine Sulfate) 5 mg IVPUSH ASDIRECTED PRN PRN Reason: Hypotension Fentanyl (Sublimaze) 100 mcg EPIDUR Q3H PRN PRN Reason: Pain Last Admin: 12/24/18 01:22 Dose: 100 mcg Fentanyl/Bupivacaine HCl (Fentanyl/Bupivacaine/Ns 2 Mcg-0.125% 100 Ml) 100 ml EPIDUR ASDIRECTED [facility], [facility]1983 Last Admin: 12/24/18 01:21 Dose: 100 ml Ferrous Sulfate (Ferrous Sulfate) 325 mg PO ONETIME ONE Stop: 12/25/18 13:01 Last Admin: 12/25/18 13:04 Dose: 325 mg Lactated Ringer's (Ringers, Lactated) 1,000 mls @ 40 mls/hr IV ASDIRECTED [facility], [facility] Last Admin: 12/24/18 08:20 Dose: 999 mls/hr Oxytocin/Lactated Ringer's (Pitocin In Lr 10 Units/1,000 Ml) 10 unit in 1,000 mls @ 500 mls/hr IV .CONTINUOUS RAQUEL Last Infusion: 12/24/18 13:24 Dose: 250 mls/hr Penicillin G Potassium 2.5 (millunits/ Sodium Chloride) 100 mls @ 55 mls/hr IV Q4H RAQUEL Last Admin: 12/24/18 04:31 Dose: 55 mls/hr Penicillin G Potassium 5 (millunits/ Sodium Chloride) 100 mls @ 55 mls/hr IV ONETIME ONE Stop: 12/23/18 22:49 Last Admin: 12/23/18 20:30 Dose: 55 mls/hr Oxytocin/Lactated Ringer's (Pitocin In Lr 10 Units/1,000 Ml) 10 unit in 1,000 mls @ 12 mls/hr IV TITRATE RAQUEL; Protocol Last Titration: 12/24/18 06:09 Dose: 10 munits/min, 60 mls/hr Lidocaine HCl (Xylocaine 1%) Confirm Administered Dose 50 ml .ROUTE .STK-MED ONE Stop: 12/24/18 11:29 Last Admin: 12/24/18 11:25 Dose: 50 ml Misoprostol (Cytotec) Confirm Administered Dose 25 mcg .ROUTE .STK-MED ONE Stop: 12/23/18 07:18 Last Admin: 12/23/18 07:15 Dose: 25 mcg Misoprostol (Cytotec) 25 mcg VAG Q4H PRN PRN Reason: cervical ripening Last Admin: 12/23/18 15:59 Dose: 25 mcg Misoprostol (Cytotec) Confirm Administered Dose 600 mcg .ROUTE .STK-MED ONE Stop: 12/24/18 08:34 Last Admin: 12/24/18 08:35 Dose: 600 mcg Misoprostol (Cytotec) 600 mcg PO NOW STA Stop: 12/24/18 09:05 Last Admin: 12/24/18 10:43 Dose: Not Given Nalbuphine HCl (Nubain) 10 mg IVPUSH Q2H PRN PRN Reason: Pain Ondansetron HCl (Zofran) 4 mg IVPUSH Q4H PRN PRN Reason: Nausea/Vomiting Ondansetron HCl (Zofran) 4 mg IVPUSH ONETIME PRN PRN Reason: Nausea/Vomiting Sodium Chloride (Saline Flush) 10 ml FLUSH ASDIRECTED PRN PRN Reason: Keep Vein Open Tranexamic Acid (Cyklokapron) 1,000 mg IVPUSH ONETIME ONE Stop: 12/24/18 13:06 Last Admin: 12/24/18 13:26 Dose: 1,000 mg
== END 2018-12-26 13:05 | disposition home or self-care (01) | DRG 560 ==
LOC: JD.OB 07:08 → JD.ICU 21:57 → JD.OB 12-24 03:24 → OBSVTOIN 12-24 07:34 → JD.MS 12-24 07:35 → JD.OB 12-24 13:19
PROVIDERS: ADMIT Obstetrics & Gynecology; ATTEND Obstetrics & Gynecology
PROC: 10D07Z6 Extraction of Products of Conception, Vacuum, Via Natural or Artificial Opening (ICD-10-PCS; principal; 2018-12-24)
PROC: 10907ZC Drainage of Amniotic Fluid, Therapeutic from Products of Conception, Via Natural or Artificial Opening (ICD-10-PCS; 2018-12-24)
PROC: 3E033VJ Introduction of Other Hormone into Peripheral Vein, Percutaneous Approach (ICD-10-PCS; 2018-12-24)
PROC: 3E0P7VZ Introduction of Hormone into Female Reproductive, Via Natural or Artificial Opening (ICD-10-PCS; 2018-12-24)
PROC: 0HQ9XZZ Repair Perineum Skin, External Approach (ICD-10-PCS; 2018-12-24)
DX: O36.5930 Maternal care for other known or suspected poor fetal growth, third trimester, not applicable or unspecified (principal); O99.824 Streptococcus B carrier state complicating childbirth; O70.0 First degree perineal laceration during delivery; O76 Abnormality in fetal heart rate and rhythm complicating labor and delivery; O72.1 Other immediate postpartum hemorrhage; O71.7 Obstetric hematoma of pelvis; Z37.0 Single live birth; Z3A.37 37 weeks gestation of pregnancy
CPT/HCPCS: 36415; 51701; 51702; 59025; 59409; 85025; 85027; 86592; 86850; 86870; 86900; 86901; A9270-GY; J2001; J2540; J2590; J3010; J7030; J7120

== ENCOUNTER 2020-09-06 13:07 | Inpatient (IN) | payer OTHER ==
[2020-09-06] MEDS ORDERED: Ondansetron 4 MG/2 ML SDV IVPUSH PRN (13:37)
[2020-09-06] MEDS ORDERED: Sodium Chloride 0.9% 10 ML Syringe FLUSH PRN (13:37)
[2020-09-06] MEDS ORDERED: Oxytocin/Lactated Ringers 10 UNIT/1,000 ML BAG IV SCH (13:45)
--- NOTE | 2020-09-06 13:47 | PCM.PREANE ---
Preanesthetic Assessment - Procedure Proposed Procedure: - Anesthesia/Transfusion/Family Hx Anesthesia History: Prior Anesthesia Reaction Type of Anesthesia Reaction: Excessive Nausea/Vomiting Family History of Anesthesia Reaction: No Transfusion History: No Prior Transfusion(s) Intubation History: Unknown - Review of Systems General: No Symptoms Pulmonary: No Symptoms Cardiovascular: No Symptoms Gastrointestinal: No Symptoms Neurological: No Symptoms Other: Reports: Easy Bruising - Physical Assessment NPO Status Date: 09/06/20 NPO Status Time: 10:30 Vital Signs: 106/72 HR 67 Sat 98 RA RR 16 98.7 Height: 1.65 m Weight: 69.003 kg ASA Class: 2 Mental Status: Alert & Oriented x3 Airway Class: Mallampati = 1 Dentition: Reports: Normal Dentition Thyro-Mental Finger Breadths: 3 Mouth Opening Finger Breadths: 3 ROM/Head Extension: Full Lungs: Clear to Auscultation, Normal Respiratory Effort Cardiovascular: Regular Rate, Regular Rhythm - Lab Values: Labs reviewed and acceptable to proceed - Allergies Allergies/Adverse Reactions: Allergies Allergy/AdvReac Type Severity Reaction Status Date / Time shellfish derived Allergy Hives Verified 08/27/20 11:46 - Blood Blood Available: Yes Product(s) Available: PRBC - Acknowledgements Anesthesia Type Planned: Spinal Pt an Appropriate Candidate for the Planned Anesthesia: Yes Alternatives and Risks of Anesthesia Discussed w Pt/Guardian: Yes Pt/Guardian Understands and Agrees with Anesthesia Plan: Yes PreAnesthesia Questionnaire - Past Health History Medical/Surgical History: Denies Medical/Surgical History HEENT History: Reports: Other (See Below) Other HEENT History: Seasonal allergies Gastrointestinal History: Reports: GERD (Well controlled) [employer]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: 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: Psychiatric History: Reports: Anxiety - Infectious Disease History Infectious Disease History: Reports: Other (See Below) (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 (patient stated preventative treatment)) - Past Surgical History HEENT Surgical History: Reports: Adenoidectomy, Tonsillectomy, Other (See Below) ([place] teeth) - SUBSTANCE USE Tobacco Use Status *Q: Never Tobacco User Tobacco Use Within Last Twelve Months: No Second Hand Smoke Exposure: No Days Per Week of Alcohol Use: 0 Number of Drinks Per Day: 0 Total Drinks Per Week: 0 Recreational Drug Use History: No - HOME MEDS Home Medications: Home Meds Pnv No.95/Ferrous Fum/Folic AC [ Tablet] 1 tab PO DAILY 12/23/18 [History] Sertraline HCl 50 mg PO DAILY 12/23/18 [History] Docusate Sodium [Colace] 100 mg PO BID PRN cap 12/26/18 [Rx] Acyclovir 400 mg PO TID 08/27/20 [History] Omeprazole Magnesium [Prilosec] 20 mg PO DAILY 08/27/20 [History]
[2020-09-06] MEDS: Lactated Ringers 1,000 ML IV SCH ×2 (14:00→16:31)
[2020-09-06] MEDS ORDERED: Citric Acid/Sodium Citrate Solution 30 ML Cup PO ONE (14:00)
[2020-09-06] MEDS ORDERED: Metoclopramide 10 MG/2 ML SDV IVPUSH ONE (14:00)
[2020-09-06] MEDS ORDERED: Morphine PF 10 MG/10 ML SDV ONE (14:02)
[2020-09-06] MEDS ORDERED: Ketorolac 30 MG/ML SDV ONE (14:15)
[2020-09-06] MEDS ORDERED: Oxytocin 10 Units/1 ML SDV ONE (14:15)
[2020-09-06] MEDS ORDERED: Ondansetron 4 MG/2 ML SDV ONE (14:15)
[2020-09-06] MEDS ORDERED: ceFAZolin 1 GM Vial ONE (14:16)
[2020-09-06] MEDS ORDERED: ceFAZolin 2 GM in Premix Bag 1 BAG IV ONE (16:45)
[2020-09-06] MEDS ORDERED: ePHEDrine 50 MG/ML SDV ONE (17:03)
[2020-09-06] MEDS ORDERED: Lactated Ringers 1,000 ML ONE ×2 (17:38→18:16)
[2020-09-06] MEDS ORDERED: fentaNYL 100 MCG/2 ML SDV IVPUSH PRN (17:54)
[2020-09-06] MEDS ORDERED: diphenhydrAMINE 50 MG/ML SDV IVPUSH PRN ×2 (17:54→18:54)
--- NOTE | 2020-09-06 18:01 | PCM.POSTAN ---
POST ANESTHESIA ASSESSMENT - MENTAL STATUS Mental Status: Alert - VITAL SIGNS Vital Signs: Last Vital Signs Temp 97.2 F 09/06/20 17:50 Pulse 54 L 09/06/20 17:50 Resp 18 09/06/20 17:50 BP 103/55 L 09/06/20 17:50 Pulse Ox 98 09/06/20 17:50 PACU Vital Signs: BP: 107/51 HR: 65 Sat: 100% RR 16 Temp: 97.2 - RESPIRATORY Respiratory Status: Respiratory Rate WNL, Airway Patent, O2 Saturation Stable - CARDIOVASCULAR CV Status: Pulse Rate WNL, Blood Pressure Stable - GASTROINTESTINAL GI Status: No Symptoms - POST OP HYDRATION Hydration Status: Adequate & Stable (Slight swelling noted to left lower eyelid, appears to be decreasing. )
--- NOTE | 2020-09-06 18:44 | PCM.OPNOTE ---
- General Post-Op/Procedure Note Date of Surgery/Procedure: 09/06/20 Operative Procedure(s): Primary low transverse Findings: Baby boy in breech presentation, weight of 6 lbs, APGARS of 8 & 9. Normal appearance of the uterus, fallopian tubes, and ovaries Pre Op Diagnosis: 38 3/7 wks. Breech presentation. Oligohydramnios Post-Op Diagnosis: Same Anesthesia Technique: Spinal Primary Surgeon: Mamie Harrison Secondary Surgeon: Gabriella De Dios Anesthesia Provider: Luiza Rowan Reason Cyber Special Agent Was Necessary: Speed, safety of procedure Pathology: Cord blood collected. Placenta discarded Fluid Replacement, Intraop: 1,200 Output, Urine Amount: 100 EBL in mLs: 700 Complications: None Condition: Good Free Text/Narrative:: The risks, benefits, indications, potential complications, and alternatives were explained to the patient and informed consent obtained. After induction of anesthesia, the patient was placed in a supine position and then draped and prepped in the usual sterile manner. A Pfannenstiel incision was made and carried down through the subcutaneous tissue to the fascia. Fascial incision was made and extended transversely. The fascia was from the underlying rectus tissue superiorly and inferiorly. The peritoneum was identified and entered. Peritoneal incision was extended longitudinally. The utero-vesical peritoneal reflection was incised transversely and the bladder flap was bluntly freed from the lower uterine segment. A low transverse uterine incision was made sharply with a scalpel and extended bluntly in a cephalocaudad direction. A baby boy was delivered from a breech presentation with APGARS as above. After the umbilical cord was clamped and cut cord blood was obtained for evaluation. The placenta was removed intact and appeared normal. The uterus was exteriorized and cleared of clots. The uterine outline, tubes and ovaries appeared normal. The uterine incision was closed with running locked sutures of 0 Vicryl. Hemostasis was obtained with a second imbricating layer of 0 Vicryl. The uterus was then placed back into the abdomen. The infracolic gutters were cleared of blood clots. The fascia was then reapproximated with running sutures of 0 Vicryl. The subcutaneous tissue was irrigated with sterile warm normal saline, hemostasis obtained with cautery. This layer was also closed with a running 0 Vicryl. The skin was reapproximated with running Subcuticular 4-0 Monocryl suture. Instrument, sponge, and needle counts were correct prior the abdominal closure and at the conclusion of the case.
[2020-09-06] MEDS ORDERED: ePHEDrine 50 MG/ML SDV IVPUSH PRN (18:54)
[2020-09-06] MEDS ORDERED: Dextrose 5%-Lactated Ringers 1,000 ML IV SCH (18:54)
[2020-09-06] MEDS ORDERED: Acetaminophen/oxyCODONE 325-5 MG Tab PO PRN ×2 (18:54)
[2020-09-06] MEDS ORDERED: Ondansetron 4 MG/2 ML SDV IV PRN (18:54)
[2020-09-06] MEDS: Ketorolac 30 MG/ML SDV IVPUSH SCH (23:28)
--- NOTE | 2020-09-07 01:01 | PCM.PNPP ---
- General Info Date of Service: 09/07/20 Functional Status: Reports: Pain Controlled, Tolerating Diet, Ambulating, Urinating - Review of Systems General: Reports: No Symptoms Pulmonary: Reports: No Symptoms Cardiovascular: Reports: No Symptoms Gastrointestinal: Reports: Abdominal Pain Genitourinary: Reports: No Symptoms Musculoskeletal: Reports: No Symptoms - General Info Date of Service: 09/07/20 - Patient Data Vital Signs - Most Recent: Last Vital Signs Temp 36.6 C 09/06/20 22:00 Pulse 67 09/06/20 20:00 Resp 14 09/06/20 22:00 BP 117/68 09/06/20 22:00 Pulse Ox 100 09/06/20 23:00 Weight - Most Recent: 69.003 kg I&O - Last 24 Hours: Intake & Output 09/06/20 09/06/20 09/07/20 14:59 22:59 06:59 Intake Total 3800 200 Output Total 82% 900 Balance 2991 -700 Lab Results - Last 24 Hours: Laboratory Results - last 24 hr 09/06/20 09/06/20 09/06/20 Range/Units 13:35 13:35 13:35 WBC 6.48 (3.98-10.04) K/mm3 RBC 4.17 (3.98-5.22) M/mm3 Hgb 12.5 D (11.2-15.7) gm/dl Hct 37.6 (34.1-44.9) % MCV 90.2 (79.4-94.8) fl MCH 30.0 (25.6-32.2) pg MCHC 33.2 (32.2-35.5) g/dl RDW Std Deviation 41.1 (36.4-46.3) fL Plt Count 162 L (182-369) K/mm3 MPV 10.8 (9.4-12.3) fl Neut % (Auto) 65.1 (34.0-71.1) % Lymph % (Auto) 26.4 (19.3-51.7) % [place] % (Auto) 8.0 (4.7-12.5) % Eos % (Auto) 0.3 L (0.7-5.8) Baso % (Auto) 0.2 (0.1-1.2) % Neut # (Auto) 4.22 (1.56-6.13) K/mm3 Lymph # (Auto) 1.71 (1.18-3.74) K/mm3 [place] # (Auto) 0.52 H (0.24-0.36) K/mm3 Eos # (Auto) 0.02 L (0.04-0.36) K/mm3 Baso # (Auto) 0.01 (0.01-0.08) K/mm3 RPR Non-reactive (NONREACTIVE) SARS-CoV-2 RNA ([place]) (NEGATIVE) Blood Type O NEGATIVE Gel Antibody Screen Positive 09/06/20 Range/Units 13:35 WBC (3.98-10.04) K/mm3 RBC (3.98-5.22) M/mm3 Hgb (11.2-15.7) gm/dl Hct (34.1-44.9) % MCV (79.4-94.8) fl MCH (25.6-32.2) pg MCHC (32.2-35.5) g/dl RDW Std Deviation (36.4-46.3) fL Plt Count (182-369) K/mm3 MPV (9.4-12.3) fl Neut % (Auto) (34.0-71.1) % Lymph % (Auto) (19.3-51.7) % [place] % (Auto) (4.7-12.5) % Eos % (Auto) (0.7-5.8) Baso % (Auto) (0.1-1.2) % Neut # (Auto) (1.56-6.13) K/mm3 Lymph # (Auto) (1.18-3.74) K/mm3 [place] # (Auto) (0.24-0.36) K/mm3 Eos # (Auto) (0.04-0.36) K/mm3 Baso # (Auto) (0.01-0.08) K/mm3 RPR (NONREACTIVE) SARS-CoV-2 RNA ([place]) Negative (NEGATIVE) Blood Type Gel Antibody Screen Med Orders - Current: Current Medications Diphenhydramine HCl (Diphenhydramine 50 Mg/Ml Sdv) 25 mg IVPUSH Q6H PRN PRN Reason: Pruritis Diphenhydramine HCl (Diphenhydramine 50 Mg/Ml Sdv) 25 mg IVPUSH Q6H PRN PRN Reason: Itching or Nausea Docusate Sodium (Docusate Sodium 100 Mg Cap) 100 mg PO Q12H PRN PRN Reason: Constipation Ephedrine Sulfate (Ephedrine 50 Mg/Ml Sdv) 5 mg IVPUSH SEECOMMENT PRN PRN Reason: Other Fentanyl (Fentanyl 100 Mcg/2 Ml Sdv) 50 mcg IVPUSH Q5M PRN PRN Reason: Pain Dextrose/Lactated Ringer's (Dextrose 5%-Lactated Ringers) 1,000 mls @ 125 mls/hr IV ASDIRECTED [facility] Stop: 09/07/20 02:53 Ibuprofen (Ibuprofen 600 Mg Tab) 600 mg PO Q6H PRN PRN Reason: mild pain or fever Ketorolac Tromethamine (Ketorolac 30 Mg/Ml Sdv) 30 mg IVPUSH Q6H [facility] Stop: 09/07/20 11:31 Last Admin: 09/06/20 23:28 Dose: 30 mg Documented by: Ondansetron HCl (Ondansetron 4 Mg/2 Ml Sdv) 4 mg IV Q8H PRN PRN Reason: Nausea/Vomiting Oxycodone/Acetaminophen (Acetaminophen/Oxycodone 325-5 Mg Tab) 1 tab PO Q4H PRN PRN Reason: Pain (moderate 4-6) Oxycodone/Acetaminophen (Acetaminophen/Oxycodone 325-5 Mg Tab) 2 tab PO Q4H PRN PRN Reason: Pain (severe 7-10) Discontinued Medications Cefazolin Sodium (Cefazolin 1 Gm Vial) Confirm Administered Dose 2 gm .ROUTE .STK-MED ONE Stop: 09/06/20 14:17 Citric Acid/Sodium Citrate (Citric Acid/Sodium Citrate Solution 30 Ml Cup) 30 ml PO ONETIME ONE Stop: 09/06/20 14:01 Last Admin: 09/06/20 16:25 Dose: 30 ml Documented by: Ephedrine Sulfate (Ephedrine 50 Mg/Ml Sdv) Confirm Administered Dose 50 mg .ROUTE .STK-MED ONE Stop: 09/06/20 17:04 Oxytocin/Lactated Ringer's (Pitocin In Lr 10 Units/1,000 Ml) 10 unit in 1,000 mls @ 500 mls/hr IV ASDIRECTED [facility] Cefazolin Sodium/Dextrose 2 gm (/ Premix) 50 mls @ 100 mls/hr IV ONETIME ONE Stop: 09/06/20 17:14 Lactated Ringer's (Ringers, Lactated) 1,000 mls @ 125 mls/hr IV ASDIRECTED [facility] Last Admin: 09/06/20 16:31 Dose: 200 mls/hr Documented by: Lactated Ringer's (Ringers, Lactated) Confirm Administered Dose 1,000 mls @ as directed .ROUTE .STK-MED ONE Stop: 09/06/20 17:39 Lactated Ringer's (Ringers, Lactated) Confirm Administered Dose 1,000 mls @ as directed .ROUTE .STK-MED ONE Stop: 09/06/20 18:17 Ketorolac Tromethamine (Ketorolac 30 Mg/Ml Sdv) Confirm Administered Dose 30 mg .ROUTE .STK-MED ONE Stop: 09/06/20 14:16 Metoclopramide HCl (Metoclopramide 10 Mg/2 Ml Sdv) 10 mg IVPUSH ONETIME ONE Stop: 09/06/20 14:01 Last Admin: 09/06/20 16:26 Dose: 10 mg Documented by: Miscellaneous Medication (Phenylephrine Hcl In 0.9% Nacl 1 Mg/10 Ml Syringe) Confirm Administered Dose 1 mg .ROUTE .STK-MED ONE Stop: 09/06/20 17:04 Morphine Sulfate (Morphine Pf 10 Mg/10 Ml Sdv) Confirm Administered Dose 10 mg .ROUTE .STK-MED ONE Stop: 09/06/20 14:03 Ondansetron HCl (Ondansetron 4 Mg/2 Ml Sdv) 4 mg IVPUSH Q4H PRN PRN Reason: Nausea/Vomiting Ondansetron HCl (Ondansetron 4 Mg/2 Ml Sdv) Confirm Administered Dose 4 mg .ROUTE .STK-MED ONE Stop: 09/06/20 14:16 Oxytocin (Oxytocin 10 Units/1 Ml Sdv) Confirm Administered Dose 10 unit .ROUTE .STK-MED ONE Stop: 09/06/20 14:16 Sodium Chloride (Sodium Chloride 0.9% 10 Ml Syringe) 10 ml FLUSH ASDIRECTED PRN PRN Reason: Keep Vein Open - Interaction Infant Disposition, : in Room with Family Interaction: Holding Infant Infant Feeding: Breastfed Infant; Nursed Well Support Person: - Recovery Exam Fundal Tone: Firm Fundal Level: At Umbilicus Fundal Placement: Midline Lochia Amount: Scant Lochia Color: Rubra/Red Perineum Description: Intact, Minimal Bruising/Swelling Episiotomy/Laceration: None Bladder Status: Voiding Urinary Elimination: Voided - Exam General: Alert, Oriented, Cooperative Lungs: Clear to Auscultation, Normal Respiratory Effort Cardiovascular: Regular Rate, Regular Rhythm GI/Abdominal Exam: Soft, Non-Tender Extremities: Normal Inspection Skin: Warm, Dry, Intact Wound/Incisions: Healing Well, No Drainage, Other (bruising superior to incision and onto mons ) - Problem List & Annotations (1) 38 weeks gestation of SNOMED Code(s): 16769854 Code(s): Z3A.38 - 38 WEEKS GESTATION OF Status: Acute Current Visit: Yes (2) Breech presentation SNOMED Code(s): 1486154 Code(s): O32.1XX0 - MATERNAL CARE FOR BREECH PRESENTATION, UNSP Status: Acute Current Visit: Yes Qualifiers: Fetus number: single or unspecified fetus Qualified Code(s): O32.1XX0 - Maternal care for breech presentation, not applicable or unspecified (3) Oligohydramnios SNOMED Code(s): 24452171 Code(s): O41.00X0 - OLIGOHYDRAMNIOS, UNSP TRIMESTER, NOT APPLICABLE OR UNSP Status: Acute Current Visit: Yes Qualifiers: Fetus number: single or unspecified fetus Trimester: third trimester Qualified Code(s): O41.03X0 - Oligohydramnios, third trimester, not applicable or unspecified (4) S/P primary low transverse SNOMED Code(s): 771275964, 91029182, 663739155, 415760790, 030222146 Code(s): Z98.891 - HISTORY OF UTERINE SCAR FROM PREVIOUS SURGERY Status: Acute Current Visit: Yes - Problem List Review Problem List Initiated/Reviewed/Updated: Yes - My Orders Last 24 Hours: My Active Orders 09/06/20 13:35 ANTIBODY IDENTIFICATION [BBK] Routine HEP C VIRUS AB [REF] Stat TYPE AND SCREEN [BBK] Routine 09/06/20 13:37 Resuscitation Status Routine 09/06/20 Dinner Regular Diet [DIET] 09/06/20 18:54 Acetaminophen/oxyCODONE [Percocet 325-5 MG] 1 tab PO Q4H PRN Acetaminophen/oxyCODONE [Percocet 325-5 MG] 2 tab PO Q4H PRN Dextrose 5%-Lactated Ringers 1,000 ml IV ASDIRECTED Docusate Sodium [Colace] 100 mg PO Q12H PRN Ondansetron [Zofran] 4 mg IV Q8H PRN diphenhydrAMINE [Benadryl] 25 mg IVPUSH Q6H PRN ePHEDrine [ePHEDrine sulfate] 5 mg IVPUSH SEECOMMENT PRN 09/06/20 18:54 Activity as Tolerated [RC] .Routine Antiembolic Devices [RC] PER UNIT ROUTINE Communication Order [RC] PER UNIT ROUTINE Communication Order [RC] PER UNIT ROUTINE Intake and Output [RC] Q4H May Shower [RC] PER UNIT ROUTINE Notify Provider Intake and Out [RC] ASDIRECTED RT Incentive Spirometry [RC] Q2HWA Vital Signs [RC] PER UNIT ROUTINE Assess Lochia [WOMSER] Per Unit Routine Assess Uterine Involution [WOMSER] Per Unit Routine Breast Pump [WOMSER] Per Unit Routine Heat Therapy [OM.PC] Per Unit Routine Ice Therapy [OM.PC] Per Unit Routine Peripheral IV Discontinue [OM.PC] Routine Sequential Compression Device [OM.PC] Per Unit Routine 09/06/20 23:30 Ketorolac [Toradol] 30 mg IVPUSH Q6H 09/07/20 05:11 CBC WITH AUTO DIFF [HEME] AM 09/07/20 17:30 Ibuprofen [Motrin] 600 mg PO Q6H PRN 09/07/20 18:46 Urinary Catheter Removal [RC] Per Unit Routine - Assessment Assessment:: PPD#0 - Plan Plan:: * Routine cares * Breast feeding * Monitor bruising on mons * Discharge home in 1-2 days
[2020-09-07] MEDS: Ketorolac 30 MG/ML SDV IVPUSH SCH ×2 (05:04→11:08)
[2020-09-07] MEDS: Docusate Sodium 100 MG Cap PO PRN ×2 (05:07→22:33)
--- NOTE | 2020-09-07 07:23 | PCM48HPAN ---
Post Anesthesia Note - EVALUATION WITHIN 48HRS OF ANESTHETIC Vital Signs in Normal Range: Yes Patient Participated in Evaluation: Yes Respiratory Function Stable: Yes Airway Patent: Yes Cardiovascular Function Stable: Yes Hydration Status Stable: Yes Pain Control Satisfactory: Yes Nausea and Vomiting Control Satisfactory: Yes Mental Status Recovered: Yes Vital Signs: Last Vital Signs Temp 97.9 F 09/07/20 03:00 Pulse 73 09/07/20 03:00 Resp 14 09/07/20 03:00 BP 105/50 L 09/07/20 03:00 Pulse Ox 100 09/07/20 07:00 - COMMENTS/OBSERVATIONS Free Text/Narrative:: no eye swelling noted at this time. Patient states it is much better
[2020-09-07] MEDS: Acetaminophen 325 MG Tab PO PRN ×2 (14:47→18:23)
[2020-09-07] MEDS: Acetaminophen/HYDROcodone 325-5 MG Tab PO PRN ×3 (14:47→22:36)
[2020-09-07] MEDS: Ibuprofen 600 MG Tab PO PRN ×2 (17:07→23:19)
[2020-09-08] MEDS: Acetaminophen 325 MG Tab PO PRN ×4 (00:28→23:13)
[2020-09-08] MEDS: Acetaminophen/HYDROcodone 325-5 MG Tab PO PRN ×4 (02:31→23:14)
[2020-09-08] MEDS: Ibuprofen 600 MG Tab PO PRN ×3 (05:25→17:11)
[2020-09-08] MEDS: Docusate Sodium 100 MG Cap PO PRN ×2 (09:25→19:03)
--- NOTE | 2020-09-08 11:13 | PCM.SN.2 ---
- Free Text/Narrative Note: Post Operative Progress Note POD #2 Subjective: Doing well overall. Ambulating without difficulty. Lochia minimal. Voiding without difficulty. Passing small amounts of flatus and feels like this is improving throughout the morning. Tolerating regular diet without nausea or vomiting. Pain controlled with oral medications. Breast-feeding and pumping breastmilk with minimal difficulty. Objective: Vitals: Vital Signs - 24 hr 09/07/20 09/07/20 09/07/20 12:48 13:00 14:00 Temperature 36.6 C Temperature [ Temporal] Pulse, 53 L Peripheral Pulse, Peripheral [ Right] Respiratory 16 16 14 Rate Blood Pressure 111/67 Blood Pressure [Right Arm] O2 Sat by Pulse 100 Oximetry 09/07/20 09/07/20 09/08/20 17:54 20:39 03:00 Temperature 36.5 C 36.8 C Temperature [ 37.0 C Temporal] Pulse, 68 70 Peripheral Pulse, 82 Peripheral [ Right] Respiratory 17 16 14 Rate Blood Pressure 117/67 105/59 L Blood Pressure 109/73 [Right Arm] O2 Sat by Pulse 100 96 99 Oximetry Physical Exam General: Alert and oriented, no acute distress Lungs: Clear to auscultation bilaterally Heart: Regular rate and rhythm Abdomen: Soft, minimal appropriate tenderness, non-distended, fundus midline, nontender and at the umbilicus Incision: Clean, dry and intact, no erythema, bleeding or drainage with Dermabond skin glue in place Extremities: No edema ASSESSMENT: 30-year-old female -0-0-2 s/p primary section POD #2 for breech presentation and oligohydramnios, complicated by breech presentation, oligohydramnios, small for gestational age and Rh- status PLAN: Doing well Breast-feeding and pumping breastmilk with minimal difficulty. Assist as needed Incision healing well. Continue to keep clean and dry. Lochia minimal. Continue to monitor for appropriate lochia. Continue routine post-operative care Patient with O- blood type and infant with B- blood type. RhoGam not indicated due to fetus with Rh- blood type. Anticipate discharge home today Сергей Hobbs MD 11:12 AM 09/08/2020
--- NOTE | 2020-09-08 11:19 | PCM.DCSUM1 ---
Discharge Summary - Hospital Course Free Text/Narrative:: - General Post-Op/Procedure Note Date of Surgery/Procedure: 09/06/20 Operative Procedure(s): Primary low transverse Findings: Baby boy in breech presentation, weight of 6 lbs, APGARS of 8 & 9. Normal appearance of the uterus, fallopian tubes, and ovaries Pre Op Diagnosis: 38 3/7 wks. Breech presentation. Oligohydramnios Post-Op Diagnosis: Same Anesthesia Technique: Spinal Primary Surgeon: Mamie Harrison Secondary Surgeon: Gabriella De Dios Anesthesia Provider: Luiza Rowan Reason Improvement Leader Was Necessary: Speed, safety of procedure Pathology: Cord blood collected. Placenta discarded Fluid Replacement, Intraop: 1,200 Output, Urine Amount: 100 EBL in mLs: 700 Complications: None Condition: Good Free Text/Narrative:: The risks, benefits, indications, potential complications, and alternatives were explained to the patient and informed consent obtained. After induction of anesthesia, the patient was placed in a supine position and then draped and prepped in the usual sterile manner. A Pfannenstiel incision was made and carried down through the subcutaneous tissue to the fascia. Fascial incision was made and extended transversely. The fascia was from the underlying rectus tissue superiorly and inferiorly. The peritoneum was identified and entered. Peritoneal incision was extended longitudinally. The utero-vesical peritoneal reflection was incised transversely and the bladder flap was bluntly freed from the lower uterine segment. A low transverse uterine incision was made sharply with a scalpel and extended bluntly in a cephalocaudad direction. A baby boy was delivered from a breech presentation with APGARS as above. After the umbilical cord was clamped and cut cord blood was obtained for evaluation. The placenta was removed intact and appeared normal. The uterus was exteriorized and cleared of clots. The uterine outline, tubes and ovaries appeared normal. The uterine incision was closed with running locked sutures of 0 Vicryl. Hemostasis was obtained with a second imbricating layer of 0 Vicryl. The uterus was then placed back into the abdomen. The infracolic gutters were cleared of blood clots. The fascia was then reapproximated with running sutures of 0 Vicryl. The subcutaneous tissue was irrigated with sterile warm normal saline, hemostasis obtained with cautery. This layer was also closed with a running 0 Vicryl. The skin was reapproximated with running Subcuticular 4-0 Monocryl suture. Instrument, sponge, and needle counts were correct prior the abdominal closure and at the conclusion of the case. Diagnosis: Stroke: No - Discharge Data Discharge Date: 09/08/20 Discharge Disposition: Home, Self-Care 01 Condition: Good - Referral to Home Health Primary Care Physician: Mamie Harrison MD - Discharge Diagnosis/Problem(s) (1) 38 weeks gestation of SNOMED Code(s): 86929556 ICD Code: Z3A.38 - 38 WEEKS GESTATION OF Status: Acute Current Visit: Yes (2) Breech presentation SNOMED Code(s): 4147871 ICD Code: O32.1XX0 - MATERNAL CARE FOR BREECH PRESENTATION, UNSP Status: Acute Current Visit: Yes Qualifiers: Fetus number: single or unspecified fetus Qualified Code(s): O32.1XX0 - Maternal care for breech presentation, not applicable or unspecified (3) Oligohydramnios SNOMED Code(s): 53078492 ICD Code: O41.00X0 - OLIGOHYDRAMNIOS, UNSP TRIMESTER, NOT APPLICABLE OR UNSP Status: Acute Current Visit: Yes Qualifiers: Fetus number: single or unspecified fetus Trimester: third trimester Qualified Code(s): O41.03X0 - Oligohydramnios, third trimester, not applicable or unspecified (4) S/P primary low transverse SNOMED Code(s): 550469179, 92367415, 374482534, 803948917, 932642449 ICD Code: Z98.891 - HISTORY OF UTERINE SCAR FROM PREVIOUS SURGERY Status: Acute Current Visit: Yes - Patient Summary/Data Operative Procedure(s) Performed: Primary low transverse Complications: None Consults: None Hospital Course: Alondra Wood was admitted for primary section given breech presentation and oligohydramnios that was diagnosed in the clinic. She was taken back to the OR and given spinal injection for anesthesia. She was prepped and draped in the normal fashion. On 09/06/2020 she had a normal primary delivery of a live male infant at 17:10. Apgars of 8 and 9. Weight of 2710 g (5 pounds 15.6 ounces). She was closed in a normal fashion. There were no complications with the procedure. Please see the operative report for full details. Her post operative course was uneventful. Her pain was well controlled and she had minimal lochia. She was ambulating, tolerating a regular diet and voiding normally. She was passing flatus and has not had a bowel movement. She was breast feeding with pumping breastmilk for feeding of infant and this was going well for her. She was afebrile and her hematocrit was 29.8 on POD #1. She desired to be discharged home on the morning of POD #2. Her blood type is O- and 's blood type is B-. RhoGam not indicated. - Patient Instructions Diet: Regular Diet as Tolerated Activity: Apply Ice, As Tolerated, No Lifting Over 20 Pounds Activity, Other: Nothing in the vagina for 6 weeks Driving: Do Not Drive (While taking narcotic medications are having significant pain) Showering/Bathing: May Shower Wound/Incision Care: Keep Operative Site/Wound Site Clean and Dry Notify Provider of: Fever, Increased Pain, Swelling and Redness, Drainage, Nausea and/or Vomiting Other/Special Instructions: Please contact your physician's office if you note any bleeding or pus coming from the abdominal incision. Please contact your physician's office if you have heavy vaginal bleeding enough to soak a pad in less than an hour for several hours. Monitor for any signs of an infection in the breasts with severe pain or redness of the breast. - Discharge Plan *PRESCRIPTION DRUG MONITORING PROGRAM REVIEWED*: Yes *COPY OF PRESCRIPTION DRUG MONITORING REPORT IN PATIENT PETER: No Home Medications: Home Meds Pnv No.95/Ferrous Fum/Folic AC [ Tablet] 1 tab PO DAILY 12/23/18 [History] Sertraline HCl 50 mg PO DAILY 12/23/18 [History] Acyclovir 400 mg PO TID 08/27/20 [History] Omeprazole Magnesium [Prilosec] 20 mg PO DAILY 08/27/20 [History] Acetaminophen [Tylenol] 325 - 650 mg PO Q6H PRN tablet 09/08/20 [Rx] Docusate Sodium [Colace] 100 mg PO Q12H PRN cap 09/08/20 [Rx] Ibuprofen [Motrin] 600 mg PO Q6H PRN tablet 09/08/20 [Rx] Patient Handouts: Care After Delivery Referrals: Mamie Harrison MD [Primary Care Provider] - (Follow-up in 2 weeks for routine postoperative visit or earlier as needed) - Discharge Summary/Plan Comment DC Time >30 min.: No - Patient Data Vitals - Most Recent: Last Vital Signs Temp 37.0 C 09/08/20 03:00 Pulse 82 09/08/20 03:00 Resp 14 09/08/20 03:00 BP 109/73 09/08/20 03:00 Pulse Ox 99 09/08/20 03:00 Weight - Most Recent: 69.003 kg Med Orders - Current: Current Medications Acetaminophen (Acetaminophen 325 Mg Tab) 650 mg PO Q6H PRN PRN Reason: Pain Last Admin: 09/08/20 07:38 Dose: 325 mg Documented by: Hydrocodone Bitart/Acetaminophen (Acetaminophen/Hydrocodone 325-5 Mg Tab) 1 tab PO Q4H PRN PRN Reason: Pain Last Admin: 09/08/20 07:39 Dose: 1 tab Documented by: Diphenhydramine HCl (Diphenhydramine 50 Mg/Ml Sdv) 25 mg IVPUSH Q6H PRN PRN Reason: Itching or Nausea Docusate Sodium (Docusate Sodium 100 Mg Cap) 100 mg PO Q12H PRN PRN Reason: Constipation Last Admin: 09/08/20 09:25 Dose: 100 mg Documented by: Ephedrine Sulfate (Ephedrine 50 Mg/Ml Sdv) 5 mg IVPUSH SEECOMMENT PRN PRN Reason: Other Ibuprofen (Ibuprofen 600 Mg Tab) 600 mg PO Q6H PRN PRN Reason: mild pain or fever Last Admin: 09/08/20 05:25 Dose: 600 mg Documented by: Ondansetron HCl (Ondansetron 4 Mg/2 Ml Sdv) 4 mg IV Q8H PRN PRN Reason: Nausea/Vomiting Discontinued Medications Cefazolin Sodium (Cefazolin 1 Gm Vial) Confirm Administered Dose 2 gm .ROUTE .STK-MED ONE Stop: 09/06/20 14:17 Citric Acid/Sodium Citrate (Citric Acid/Sodium Citrate Solution 30 Ml Cup) 30 ml PO ONETIME ONE Stop: 09/06/20 14:01 Last Admin: 09/06/20 16:25 Dose: 30 ml Documented by: Diphenhydramine HCl (Diphenhydramine 50 Mg/Ml Sdv) 25 mg IVPUSH Q6H PRN PRN Reason: Pruritis Ephedrine Sulfate (Ephedrine 50 Mg/Ml Sdv) Confirm Administered Dose 50 mg .ROUTE .ST-MED ONE Stop: 09/06/20 17:04 Fentanyl (Fentanyl 100 Mcg/2 Ml Sdv) 50 mcg IVPUSH Q5M PRN PRN Reason: Pain Oxytocin/Lactated Ringer's (Pitocin In Lr 10 Units/1,000 Ml) 10 unit in 1,000 mls @ 500 mls/hr IV ASDIRECTED [facility] Cefazolin Sodium/Dextrose 2 gm (/ Premix) 50 mls @ 100 mls/hr IV ONETIME ONE Stop: 09/06/20 17:14 Last Admin: 09/07/20 17:39 Dose: Not Given Documented by: Lactated Ringer's (Ringers, Lactated) 1,000 mls @ 125 mls/hr IV ASDIRECTED [facility] Last Admin: 09/06/20 16:31 Dose: 200 mls/hr Documented by: Lactated Ringer's (Ringers, Lactated) Confirm Administered Dose 1,000 mls @ as directed .ROUTE .ST-MED ONE Stop: 09/06/20 17:39 Lactated Ringer's (Ringers, Lactated) Confirm Administered Dose 1,000 mls @ as directed .ROUTE .[facility] ONE Stop: 09/06/20 18:17 Dextrose/Lactated Ringer's (Dextrose 5%-Lactated Ringers) 1,000 mls @ 125 mls/hr IV ASDIRECTED [facility] Stop: 09/07/20 02:53 Ketorolac Tromethamine (Ketorolac 30 Mg/Ml Sdv) Confirm Administered Dose 30 mg .ROUTE .STK-MED ONE Stop: 09/06/20 14:16 Ketorolac Tromethamine (Ketorolac 30 Mg/Ml Sdv) 30 mg IVPUSH Q6H [facility] Stop: 09/07/20 11:31 Last Admin: 09/07/20 11:08 Dose: 30 mg Documented by: Metoclopramide HCl (Metoclopramide 10 Mg/2 Ml Sdv) 10 mg IVPUSH ONETIME ONE Stop: 09/06/20 14:01 Last Admin: 09/06/20 16:26 Dose: 10 mg Documented by: Miscellaneous Medication (Phenylephrine Hcl In 0.9% Nacl 1 Mg/10 Ml Syringe) Confirm Administered Dose 1 mg .ROUTE .STK-MED ONE Stop: 09/06/20 17:04 Morphine Sulfate (Morphine Pf 10 Mg/10 Ml Sdv) Confirm Administered Dose 10 mg .ROUTE .STK-MED ONE Stop: 09/06/20 14:03 Ondansetron HCl (Ondansetron 4 Mg/2 Ml Sdv) 4 mg IVPUSH Q4H PRN PRN Reason: Nausea/Vomiting Ondansetron HCl (Ondansetron 4 Mg/2 Ml Sdv) Confirm Administered Dose 4 mg .[place]TE [place] ONE Stop: 09/06/20 14:16 Oxycodone/Acetaminophen (Acetaminophen/Oxycodone 325-5 Mg Tab) 1 tab PO Q4H PRN PRN Reason: Pain (moderate 4-6) Oxycodone/Acetaminophen (Acetaminophen/Oxycodone 325-5 Mg Tab) 2 tab PO Q4H PRN PRN Reason: Pain (severe 7-10) Oxytocin (Oxytocin 10 Units/1 Ml Sdv) Confirm Administered Dose 10 unit .ROUTE .STK-MED ONE Stop: 09/06/20 14:16 Sodium Chloride (Sodium Chloride 0.9% 10 Ml Syringe) 10 ml FLUSH ASDIRECTED PRN PRN Reason: Keep Vein Open
[2020-09-08] MEDS ORDERED: Acetaminophen/HYDROcodone 325-5 MG Tab PO PRN (18:21)
[2020-09-09] MEDS: Ibuprofen 600 MG Tab PO PRN ×3 (00:08→11:01)
[2020-09-09] MEDS: Acetaminophen/HYDROcodone 325-5 MG Tab PO PRN ×2 (03:52→08:04)
[2020-09-09] MEDS: Acetaminophen 325 MG Tab PO PRN ×2 (03:53→08:05)
--- NOTE | 2020-09-09 10:47 | PCM.SN.2 ---
- Free Text/Narrative Note: Post Operative Progress Note POD #3 Subjective: Doing well overall. Ambulating without difficulty. Lochia minimal. Voiding without difficulty. Passing normal flatus and this is going well for her. She has not had a bowel movement at this time. Tolerating regular diet without nausea or vomiting. Pain well controlled with [place], Tylenol and ibuprofen this morning. He reports that she had some increased amounts of pain last evening that required 2 [place] to control her pain. This morning she has been able to use 1 [place] and one Tylenol with ibuprofen to control her pain. Breast-feeding with minimal difficulty. Objective: Vitals: Vital Signs - 24 hr 09/08/09/08/09/08/20 12:38 18:19 21:15 Temperature 36.6 C 36.7 C 36.4 C Pulse, 69 78 63 Peripheral Respiratory 16 16 16 Rate Blood Pressure 110/65 128/89 117/70 O2 Sat by Pulse 97 98 99 Oximetry 09/09/ 03:08 Temperature 36.3 C Pulse, 75 Peripheral Respiratory 16 Rate Blood Pressure 106/73 O2 Sat by Pulse 100 Oximetry Physical Exam General: Alert and oriented, no acute distress Lungs: Clear to auscultation bilaterally Heart: Regular rate and rhythm Abdomen: Soft, minimal appropriate tenderness, non-distended, fundus midline, nontender and at the umbilicus Incision: Clean, dry and intact, no erythema, bleeding or drainage with Dermabond skin glue in place, ecchymosis on the mons has continued to improve since yesterday Extremities: No edema ASSESSMENT: 30-year-old female -0-0-2 s/p primary section POD #3 for breech presentation and oligohydramnios, complicated by breech presentation, oligohydramnios, small for gestational age and Rh- status PLAN: Doing well Breast-feeding with minimal difficulty. Assist as needed Incision healing well. Continue to keep clean and dry. Lochia minimal. Continue to monitor for appropriate lochia. Continue routine post-operative care Patient with good pain control at this time after increasing to 2 tablets of [place] last evening and this was able to control her pain very well. She has been able to use one [place] and one Tylenol this morning and this is working well. Patient with O- blood type and infant with B- blood type. RhoGam not indicated due to fetus with Rh- blood type. Discharge home today, patient had been scheduled for discharge on POD #2 but infant was not discharged Сергей Hobbs MD 10:43 AM 09/09/2020
--- NOTE | 2020-09-09 10:50 | PCM.DCSUM1 ---
Discharge Summary - Hospital Course Free Text/Narrative:: - General Post-Op/Procedure Note Date of Surgery/Procedure: 09/06/20 Operative Procedure(s): Primary low transverse Findings: Baby boy in breech presentation, weight of 6 lbs, APGARS of 8 & 9. Normal appearance of the uterus, fallopian tubes, and ovaries Pre Op Diagnosis: 38 3/7 wks. Breech presentation. Oligohydramnios Post-Op Diagnosis: Same Anesthesia Technique: Spinal Primary Surgeon: Mamie Harrison Secondary Surgeon: Gabriella De Dios Anesthesia Provider: Luiza Rowan Reason [employer] Representative Was Necessary: Speed, safety of procedure Pathology: Cord blood collected. Placenta discarded Fluid Replacement, Intraop: 1,200 Output, Urine Amount: 100 EBL in mLs: 700 Complications: None Condition: Good Free Text/Narrative:: The risks, benefits, indications, potential complications, and alternatives were explained to the patient and informed consent obtained. After induction of anesthesia, the patient was placed in a supine position and then draped and prepped in the usual sterile manner. A Pfannenstiel incision was made and carried down through the subcutaneous tissue to the fascia. Fascial incision was made and extended transversely. The fascia was from the underlying rectus tissue superiorly and inferiorly. The peritoneum was identified and entered. Peritoneal incision was extended longitudinally. The utero-vesical peritoneal reflection was incised transversely and the bladder flap was bluntly freed from the lower uterine segment. A low transverse uterine incision was made sharply with a scalpel and extended bluntly in a cephalocaudad direction. A baby boy was delivered from a breech presentation with APGARS as above. After the umbilical cord was clamped and cut cord blood was obtained for evaluation. The placenta was removed intact and appeared normal. The uterus was exteriorized and cleared of clots. The uterine outline, tubes and ovaries appeared normal. The uterine incision was closed with running locked sutures of 0 Vicryl. Hemostasis was obtained with a second imbricating layer of 0 Vicryl. The uterus was then placed back into the abdomen. The infracolic gutters were cleared of blood clots. The fascia was then reapproximated with running sutures of 0 Vicryl. The subcutaneous tissue was irrigated with sterile warm normal saline, hemostasis obtained with cautery. This layer was also closed with a running 0 Vicryl. The skin was reapproximated with running Subcuticular 4-0 Monocryl suture. Instrument, sponge, and needle counts were correct prior the abdominal closure and at the conclusion of the case. Diagnosis: Stroke: No - Discharge Data Discharge Date: 09/09/20 Discharge Disposition: Home, Self-Care 01 Condition: Good - Referral to Home Health Primary Care Physician: Mamie Harrison MD - Discharge Diagnosis/Problem(s) (1) 38 weeks gestation of SNOMED Code(s): 41247827 ICD Code: Z3A.38 - 38 WEEKS GESTATION OF Status: Acute Current Visit: Yes (2) Breech presentation SNOMED Code(s): 3600222 ICD Code: O32.1XX0 - MATERNAL CARE FOR BREECH PRESENTATION, UNSP Status: Acute Current Visit: Yes Qualifiers: Fetus number: single or unspecified fetus Qualified Code(s): O32.1XX0 - Maternal care for breech presentation, not applicable or unspecified (3) Oligohydramnios SNOMED Code(s): 07186514 ICD Code: O41.00X0 - OLIGOHYDRAMNIOS, UNSP TRIMESTER, NOT APPLICABLE OR UNSP Status: Acute Current Visit: Yes Qualifiers: Fetus number: single or unspecified fetus Trimester: third trimester Qualified Code(s): O41.03X0 - Oligohydramnios, third trimester, not applicable or unspecified (4) S/P primary low transverse SNOMED Code(s): 721433140, 64051037, 660822431, 622290492, 475564846 ICD Code: Z98.891 - HISTORY OF UTERINE SCAR FROM PREVIOUS SURGERY Status: Acute Current Visit: Yes - Patient Summary/Data Operative Procedure(s) Performed: Primary low transverse Complications: None Consults: None Hospital Course: Alondra Wood was admitted for primary section given breech presentation and oligohydramnios that was diagnosed in the clinic. She was taken back to the OR and given spinal injection for anesthesia. She was prepped and draped in the normal fashion. On 09/06/2020 she had a normal primary delivery of a live male infant at 17:10. Apgars of 8 and 9. Weight of 2710 g (5 pounds 15.6 ounces). She was closed in a normal fashion. There were no complications with the procedure. Please see the operative report for full details. Her post operative course was uneventful. Her pain was well controlled and she had minimal lochia. She was ambulating, tolerating a regular diet and voiding normally. She was passing flatus and has not had a bowel movement. She was breast feeding with pumping breastmilk for feeding of infant and this was going well for her. She was afebrile and her hematocrit was 29.8 on POD #1. She desired to be discharged home on the morning of POD #2 but the was not discharged on POD #2. In the evening of POD #2 she did have increased amount of pain and took to [place] that was able to control this increased amount of pain and in the morning of POD #3 she was able to control it with ibuprofen as well as one [place] and one Tylenol tablet. She desired to be discharged home in the morning of POD #3. Her blood type is O- and infant's blood type is B-. RhoGam not indicated. - Patient Instructions Diet: Regular Diet as Tolerated Activity: Apply Ice, As Tolerated, No Lifting Over 20 Pounds Activity, Other: Nothing in the vagina for 6 weeks Driving: Do Not Drive (While taking narcotic medications are having significant pain) Showering/Bathing: May Shower Wound/Incision Care: Keep Operative Site/Wound Site Clean and Dry Notify Provider of: Fever, Increased Pain, Swelling and Redness, Drainage, Nausea and/or Vomiting Other/Special Instructions: Please contact your physician's office if you note any bleeding or pus coming from the abdominal incision. Please contact your physician's office if you have heavy vaginal bleeding enough to soak a pad in less than an hour for several hours. Monitor for any signs of an infection in the breasts with severe pain or redness of the breast. - Discharge Plan *PRESCRIPTION DRUG MONITORING PROGRAM REVIEWED*: Yes *COPY OF PRESCRIPTION DRUG MONITORING REPORT IN PATIENT PETER: No Home Medications: Home Meds Pnv No.95/Ferrous Fum/Folic AC [ Tablet] 1 tab PO DAILY 12/23/18 [History] Sertraline HCl 50 mg PO DAILY 12/23/18 [History] Omeprazole Magnesium [Prilosec] 20 mg PO DAILY 08/27/20 [History] Acetaminophen [Tylenol] 325 - 650 mg PO Q6H PRN tablet 09/08/20 [Rx] Docusate Sodium [Colace] 100 mg PO Q12H PRN cap 09/08/20 [Rx] Ibuprofen [Motrin] 600 mg PO Q6H PRN tablet 09/08/20 [Rx] Patient Handouts: Care After Delivery Referrals: Mamie Harrison MD [Primary Care Provider] - (Follow-up in 2 weeks for routine postoperative visit or earlier as needed. Please call [facility] to make your appointment. ) - Discharge Summary/Plan Comment DC Time >30 min.: No - Patient Data Vitals - Most Recent: Last Vital Signs Temp 36.3 C 09/09/20 03:08 Pulse 75 09/09/20 03:08 Resp 16 09/09/20 03:08 BP 106/73 09/09/20 03:08 Pulse Ox 100 09/09/20 03:08 Weight - Most Recent: 69.003 kg I&O - Last 24 hours: Intake & Output 09/08/20 09/09/20 09/09/20 22:59 06:59 14:59 Intake Total 170 Balance 170 Lab Results - Last 24 hrs: Laboratory Results - last 24 hr 09/06/20 Range/Units 13:35 Hepatitis C Antibody <0.1 (0.0-0.9) s/co ratio Med Orders - Current: Current Medications Acetaminophen (Acetaminophen 325 Mg Tab) 650 mg PO Q6H PRN PRN Reason: Pain Last Admin: 09/09/20 08:05 Dose: 325 mg Documented by: Hydrocodone Bitart/Acetaminophen (Acetaminophen/Hydrocodone 325-5 Mg Tab) 1 tab PO Q4H PRN PRN Reason: Pain Last Admin: 09/09/20 08:04 Dose: 1 tab Documented by: Hydrocodone Bitart/Acetaminophen (Acetaminophen/Hydrocodone 325-5 Mg Tab) 2 tab PO Q4H PRN PRN Reason: Pain Last Admin: 09/08/20 18:32 Dose: 2 tab Documented by: Diphenhydramine HCl (Diphenhydramine 50 Mg/Ml Sdv) 25 mg IVPUSH Q6H PRN PRN Reason: Itching or Nausea Docusate Sodium (Docusate Sodium 100 Mg Cap) 100 mg PO Q12H PRN PRN Reason: Constipation Last Admin: 09/08/20 19:03 Dose: 100 mg Documented by: Ephedrine Sulfate (Ephedrine 50 Mg/Ml Sdv) 5 mg IVPUSH SEECOMMENT PRN PRN Reason: Other Ibuprofen (Ibuprofen 600 Mg Tab) 600 mg PO Q6H PRN PRN Reason: mild pain or fever Last Admin: 09/09/20 06:18 Dose: 600 mg Documented by: Ondansetron HCl (Ondansetron 4 Mg/2 Ml Sdv) 4 mg IV Q8H PRN PRN Reason: Nausea/Vomiting Discontinued Medications Cefazolin Sodium (Cefazolin 1 Gm Vial) Confirm Administered Dose [address] ONE Stop: 09/06/20 14:17 Citric Acid/Sodium Citrate (Citric Acid/Sodium Citrate Solution 30 Ml Cup) 30 ml PO ONETIME ONE Stop: 09/06/20 14:01 Last Admin: 09/06/20 16:25 Dose: 30 ml Documented by: Diphenhydramine HCl (Diphenhydramine 50 Mg/Ml Sdv) 25 mg IVPUSH Q6H PRN PRN Reason: Pruritis Ephedrine Sulfate (Ephedrine 50 Mg/Ml Sdv) Confirm Administered Dose 50 mg .ROUTE .[facility] ONE Stop: 09/06/20 17:04 Fentanyl (Fentanyl 100 Mcg/2 Ml Sdv) 50 mcg IVPUSH Q5M PRN PRN Reason: Pain Oxytocin/Lactated Ringer's (Pitocin In Lr 10 Units/1,000 Ml) 10 unit in 1,000 mls @ 500 mls/hr IV ASDIRECTED [facility] Cefazolin Sodium/Dextrose 2 gm (/ Premix) 50 mls @ 100 mls/hr IV ONETIME ONE Stop: 09/06/20 17:14 Last Admin: 09/07/20 17:39 Dose: Not Given Documented by: Lactated Ringer's (Ringers, Lactated) 1,000 mls @ 125 mls/hr IV ASDIRECTED [facility] Last Admin: 09/06/20 16:31 Dose: 200 mls/hr Documented by: Lactated Ringer's (Ringers, Lactated) Confirm Administered Dose 1,000 mls @ as directed .ROUTE .[facility] ONE Stop: 09/06/20 17:39 Lactated Ringer's (Ringers, Lactated) Confirm Administered Dose 1,000 mls @ as directed .ROUTE .[facility] ONE Stop: 09/06/20 18:17 Dextrose/Lactated Ringer's (Dextrose 5%-Lactated Ringers) 1,000 mls @ 125 mls/hr IV ASDIRECTED [facility] Stop: 09/07/20 02:53 Ketorolac Tromethamine (Ketorolac 30 Mg/Ml Sdv) Confirm Administered Dose 30 mg .ROUTE .[facility] ONE Stop: 09/06/20 14:16 Ketorolac Tromethamine (Ketorolac 30 Mg/Ml Sdv) 30 mg IVPUSH Q6H [facility] Stop: 09/07/20 11:31 Last Admin: 09/07/20 11:08 Dose: 30 mg Documented by: Metoclopramide HCl (Metoclopramide 10 Mg/2 Ml Sdv) 10 mg IVPUSH ONETIME ONE Stop: 09/06/20 14:01 Last Admin: 09/06/20 16:26 Dose: 10 mg Documented by: Miscellaneous Medication (Phenylephrine Hcl In 0.9% Nacl 1 Mg/10 Ml Syringe) Confirm Administered Dose 1 mg .ROUTE .[facility] ONE Stop: 09/06/20 17:04 Morphine Sulfate (Morphine Pf 10 Mg/10 Ml Sdv) Confirm Administered Dose 10 mg .ROUTE .[facility] ONE Stop: 09/06/20 14:03 Ondansetron HCl (Ondansetron 4 Mg/2 Ml Sdv) 4 mg IVPUSH Q4H PRN PRN Reason: Nausea/Vomiting Ondansetron HCl (Ondansetron 4 Mg/2 Ml Sdv) Confirm Administered Dose 4 mg .ROUTE .[facility] ONE Stop: 09/06/20 14:16 Oxycodone/Acetaminophen (Acetaminophen/Oxycodone 325-5 Mg Tab) 1 tab PO Q4H PRN PRN Reason: Pain (moderate 4-6) Oxycodone/Acetaminophen (Acetaminophen/Oxycodone 325-5 Mg Tab) 2 tab PO Q4H PRN PRN Reason: Pain (severe 7-10) Oxytocin (Oxytocin 10 Units/1 Ml Sdv) Confirm Administered Dose 10 unit .ROUTE .[facility] ONE Stop: 09/06/20 14:16 Sodium Chloride (Sodium Chloride 0.9% 10 Ml Syringe) 10 ml FLUSH ASDIRECTED PRN PRN Reason: Keep Vein Open
[2020-09-09] MEDS: Docusate Sodium 100 MG Cap PO PRN (11:01)
== END 2020-09-09 11:15 | disposition home or self-care (01) | DRG 787 ==
LOC: JD.OB 13:07
PROVIDERS: ADMIT Obstetrics & Gynecology; ATTEND Obstetrics & Gynecology
PROC: 10D00Z1 Extraction of Products of Conception, Low, Open Approach (ICD-10-PCS; principal; 2020-09-06)
DX: O32.1XX0 Maternal care for breech presentation, not applicable or unspecified (principal); O41.03X0 Oligohydramnios, third trimester, not applicable or unspecified; Z3A.38 38 weeks gestation of pregnancy; Z37.0 Single live birth; Z20.822 Contact with and (suspected) exposure to COVID-19; O99.62 Diseases of the digestive system complicating childbirth; K21.9 Gastro-esophageal reflux disease without esophagitis; Z91.013 Allergy to seafood
CPT/HCPCS: 01961; 36415; 59025; 85025; 86592; 86803; 86850; 86870; 86900; 86901; 94762; A9270-GY; J0690; J1885; J2270; J2370; J2405; J2590; J2765; J7120; U0002

== ENCOUNTER 2023-12-31 11:12 | Inpatient (IN) | payer BC, OTHER ==
[~2023-12-31 11:12] MED LIST: Ropivacaine 0.2% PF 2 MG/ML 20 ML SDV ONE
[2023-12-31] MEDS ORDERED: Sodium Chloride 0.9% 10 ML Syringe FLUSH PRN (11:20)
[2023-12-31] MEDS ORDERED: Lidocaine 1% 50 ML MDV INJECT PRN (11:20)
[2023-12-31] MEDS ORDERED: Acetaminophen 325 MG Tab PO PRN (11:20)
[2023-12-31] MEDS ORDERED: Nalbuphine 10 MG/1 ML Vial IVPUSH PRN (11:20)
[2023-12-31] MEDS ORDERED: Ondansetron 4 MG/2 ML SDV IVPUSH PRN (11:20)
[2023-12-31] MEDS ORDERED: Oxytocin/0.9 % Sodium Chloride 30 UNIT/500 ML BAG IV SCH (11:30)
[2023-12-31 11:39] LABS: BASOPHILS PERCENT AUTO 0.3 % (0.0-1.0); EOSINOPHILS PERCENT AUTO 0.3 % (0.0-6.0); HEMATOCRIT 41.4 % (37.0-47.0); HEMOGLOBIN 13.9 gm/dl (12.0-16.0); IMMATURE GRAN ABSOLUTE AUTO 0.02 K/mm3 (0.00-0.05); IMMATURE GRAN PERCENT AUTO 0.3 % (0.0-0.4); LYMPHOCYTES ABSOLUTE AUTO 1.8 K/mm3 (1.0-4.8); LYMPHOCYTES PERCENT AUTO 29.9 % (24.0-44.0); MEAN CORPUSCULAR HEMOGLOBIN 30.5 pg (28.0-32.0); MEAN CORPUSCULAR HGB CONC 33.6 g/dl (32.0-36.0); MEAN CORPUSCULAR VOLUME 90.8 fl (83.0-99.0); MEAN PLATELET VOLUME 10.9 fl (9.4-12.3); MONOCYTES ABSOLUTE AUTO 0.5 K/mm3 (0.0-0.8); MONOCYTES PERCENT AUTO 8.5 % (0.0-8.0); NEUTROPHILS ABSOLUTE AUTO 3.5 K/mm3 (1.8-7.7); NEUTROPHILS PERCENT AUTO 60.7 % (41.0-71.0); PLATELET COUNT,PLT 147 K/mm3 (150-400); RED BLOOD CELL COUNT 4.56 M/mm3 (4.10-5.30); WHITE BLOOD CELL COUNT,WBC 5.85 K/mm3 (3.9-11.3)
[2023-12-31] MEDS: Ampicillin 2 GM in Sodium Chloride 0.9% 100 ML IV ONE (12:47)
[2023-12-31] MEDS: Lactated Ringers 1,000 ML IV SCH (12:48)
[2023-12-31] MEDS: Oxytocin/0.9 % Sodium Chloride 30 UNIT/500 ML BAG IV SCH (12:48)
[2023-12-31] MEDS ORDERED: ePHEDrine 50 MG/ML SDV IVPUSH PRN (14:39)
[2023-12-31] MEDS ORDERED: diphenhydrAMINE 50 MG/ML SDV IVPUSH PRN (14:39)
[2023-12-31] MEDS: fentaNYL 100 MCG/2 ML SDV EPIDUR PRN (15:11)
[2023-12-31] MEDS: Bupivacaine/fentaNYL/NS 100 ML Bag EPIDUR PRN (15:12)
[2023-12-31] MEDS: Ampicillin 1 GM in Sodium Chloride 0.9% 100 ML IV SCH (16:20)
[2023-12-31] MEDS: Calcium Carbonate 500 MG Tab.Chew PO PRN (17:58)
[2023-12-31] MEDS ORDERED: Docusate Sodium 100 MG Cap PO PRN (19:28)
[2023-12-31] MEDS: Sodium Chloride 0.9% 10 ML Syringe FLUSH SCH (21:38)
[2024-01-01] MEDS: Witch Hazel Medicated Pads 40/Jar TOP PRN (00:18)
[2024-01-01] MEDS: Docusate Sodium 100 MG Cap PO PRN (00:18)
[2024-01-01] MEDS: Benzocaine/Menthol 20%-0.5% Spray 78 GM Cannister TOP PRN (00:19)
[2024-01-01] MEDS: Ibuprofen 600 MG Tab PO SCH ×2 (01:01→21:18)
[2024-01-01] MEDS: buPROPion 150 MG Tab.ER PO SCH (08:30)
[2024-01-01] MEDS ORDERED: Citalopram 20 MG Tab PO SCH (09:00)
[2024-01-01] MEDS: Acetaminophen 325 MG Tab PO PRN (12:17)
[2024-01-01] MEDS: Docusate Sodium 100 MG Cap PO SCH (21:17)
[2024-01-01] MEDS: Citalopram 20 MG Tab PO SCH (21:19)
== END 2024-01-02 14:25 | disposition home or self-care (01) | DRG 560 ==
LOC: JD.OB 11:12 → OBSVTOIN 21:41 → JD.OB 21:41
PROVIDERS: ADMIT Obstetrics & Gynecology; ATTEND Obstetrics & Gynecology
PROC: 10E0XZZ Delivery of Products of Conception, External Approach (ICD-10-PCS; principal; 2023-12-31)
PROC: 10907ZC Drainage of Amniotic Fluid, Therapeutic from Products of Conception, Via Natural or Artificial Opening (ICD-10-PCS; 2023-12-31)
PROC: 3E033VJ Introduction of Other Hormone into Peripheral Vein, Percutaneous Approach (ICD-10-PCS; 2023-12-31)
PROC: 3E0R3BZ Introduction of Anesthetic Agent into Spinal Canal, Percutaneous Approach (ICD-10-PCS; 2023-12-31)
PROC: 00HU33Z Insertion of Infusion Device into Spinal Canal, Percutaneous Approach (ICD-10-PCS; 2023-12-31)
DX: O36.5930 Maternal care for other known or suspected poor fetal growth, third trimester, not applicable or unspecified (principal); Z3A.37 37 weeks gestation of pregnancy; Z37.0 Single live birth; O34.211 Maternal care for low transverse scar from previous cesarean delivery; O26.893 Other specified pregnancy related conditions, third trimester; Z67.41 Type O blood, Rh negative; O69.81X0 Labor and delivery complicated by cord around neck, without compression, not applicable or unspecified; O76 Abnormality in fetal heart rate and rhythm complicating labor and delivery
CPT/HCPCS: 36415; 59020; 59409; 85025; 86592; A9270-GY; C1726; J0290; J2795; J3010; J3490; J7120; J7999